=== PATIENT | female | born 1960 | race Two or more races ===

== ENCOUNTER 2020-02-28 06:56 | Outpatient (REF) | payer BC, SELFPAY | END 2020-02-28 06:57 | disposition home or self-care (01) | LOC: HO.LAB 06:56 | PROVIDERS: Visit Provider Internal Medicine | DX: Z20.828 Contact with and (suspected) exposure to other viral communicable diseases (principal) | CPT/HCPCS: C9803; U0003 ==

== ENCOUNTER 2020-03-09 07:07 | Outpatient (REF) | payer BC, SELFPAY | END 2020-03-09 07:08 | disposition home or self-care (01) | LOC: HO.LAB 07:07 | PROVIDERS: Visit Provider Internal Medicine | DX: Z20.828 Contact with and (suspected) exposure to other viral communicable diseases (principal) | CPT/HCPCS: C9803; U0003 ==

== ENCOUNTER → 2022-04-07 15:16 | Outpatient (BNVA) | payer BC, SELFPAY | PROVIDERS: PCP Internal Medicine; Visit Provider Surgery | DX: Z13.89 Encounter for screening for other disorder (principal) ==

== ENCOUNTER 2022-05-11 05:58 | Day surgery (SDC) | payer BC, SELFPAY ==
[2022-05-05 10:40] VITALS: BMI 33.5
[2022-05-11] VITALS (7 sets, daily range): BP systolic 105–115; BP diastolic 61–70; PULSE 74–82; RESP 18–20; TEMP 36.4–36.9; O2SAT 97–99
[2022-05-11] MEDS: Lactated Ringers 1,000 ML 100 ML IVCONT (06:36)
--- NOTE | 2022-05-11 07:21 | P.CONAN_ITS ---
[facility] Active Problems Active Problems: All Active Problems (Updated 05/05/22 @ 10:40 by Brenda Kendall RN) Ventral hernia (Acute) Past Medical History Medical History DVT (deep venous thrombosis) Hiatal hernia History of postoperative nausea and vomiting Renal calculi Ventral hernia Family History Family History Mother Breast cancer Maternal Grandmother Stomach cancer Father Chronic emphysema syndrome Hypertension Surgical History Surgical History Bunion delivery delivered H/O colonoscopy History of bunionectomy Hx of lithotripsy Hx of varicose vein ligation History of Problems with Anesthesia: Yes (PONV) Social History Social History Household Members: Spouse and Children Housing: House Do you presently have visiting nurse or other home services: No Alcohol intake: current Alcohol intake frequency: holidays/special occasions only Patient Tobacco Use Status: Former Tobacco user Quit Date: age 30 Tobacco use type: Cigarette Years Smoked: 12 Use of substances other than those prescribed or required for medical reasons: No Have you been hit, kicked, punched, or otherwise hurt by someone within the past year? If so, by whom?: No Are you DNR?: No Advance Directives: No ([facility] has official HCP form) Advance Directives Information Provided: Yes (as above noted-will bring copy DOS for [facility] chart) Advance Directives on File: No Recently lost weight without trying: No Eating poorly because of decreased appetite: No Nutrition Risks: No Nutritional Risk Poor oral hygiene: No Current occupational status: employed Current occupation: [employer] Meds Allergies Allergy/AdvReac Type Severity Reaction Status Date / Time No Known Allergies Allergy Verified 04/07/22 15:23 Active Medications: Current Medications Lactated Ringer's (Lr) 1,000 mls @ 100 mls/hr IVCONT .Q10H NAUN Last Admin: 05/11/22 06:36 Dose: 100 mls/hr Lactated Ringer's (Lr) 1,000 mls @ 50 mls/hr IVCONT .Q20H [facility] Home Medications Medication Instructions Recorded Confirmed Last Taken Type No Known Home Meds 05/05/22 05/05/22 Unknown History Exam Exam Date and Time: May 11, 2022 0721 Height,Weight and Vital Signs: Height 5 ft 2 in Weight 83.007 kg Airway Mallampati Class: II TM Dist: >3cm Neck ROM: Full Loose/Missing/Broken Teeth: No Heart: RRR Lungs: CTA Assessment and Plan Assessment Anesthesia Assessment: Anesthesia Plan Discussed and Chart Reviewed Final Anesthetic Review History of Problems with Anesthesia: Yes (PONV) NPO: Yes ASA Class: II Final Preanesthetic Review: Meds/Allgs Chart Reviewed, Consent Obtained/Reviewed and Anes Risks/Benef Reviewed Patient Risk: Low Procedure Risk: Low Anesthetic Plan Anesthetic Plan: GA Disposition: Standard PACU
--- NOTE | 2022-05-11 07:34 | MHC.SHP ---
Pre-Procedural Eval Section A Date of Service: 05/11/22 The patient is an INPATIENT: No Changes since office visit: Yes Patient answered all questions; No Cold of Flu in the past 2 weeks, No New Medical Problems and No Changes in Medication The History & Physical has been completed within 30 days and I have reviewed it.: No Section B Chief Complaint: Ventral hernia without obstruction or gangrene Details of Present Illness: No change in symptoms since last visit Relevant Family History (Specify if Yes): No Relevant Social History: None Present Medications: see Short Stay Collaborative assessment Medical History: No relevant PMH History of Previous Operations: No relevant previous surgery Allergies: Allergies Allergy/AdvReac Type Severity Reaction Status Date / Time No Known Allergies Allergy Verified 04/07/22 15:23 Review of Systems Sugical H&P ROS: Negative: Constitution, Cardiovascular, Respiratory, Neurological, Psychiatric, Hem-Onc, Allergic/Immunologic, Gastrointestinal, Genitourinary, Musculoskeletal, Integumentary, Endocrine and Eyes/Ears/Nose/Throat Exam Surgical H&P Exam: Normal: HEENT, Normal: Heart, Normal: Lungs, Normal: Extremities, Normal: Skin and Normal: Neurological and Significant Findings: Abdomen (ventral hernia) Plan Diagnosis/Plan: Unchanged I have reviewed the history and physical and performed a pertinent physical examination on my patient. No changes have occurred unless specified. Time Spent With Patient Time: Total time managing care of this patient today ____ minutes.
--- NOTE | 2022-05-11 08:19 | W.PM.OPN ---
Operative Note Operative Note Date of Service: 05/11/22 Narrative: Preoperative diagnosis: ventral hernia Postoperative diagnosis: same Procedure: repair of ventral hernia with mesh Surgeon: Gunnar Maza MD Case Sealer: Vanita Lopes PA-C Anesthesia: general LMA Indications for procedure: 61-year-old female presenting with a palpable lump above the umbilicus found to have a ventral hernia . Operative findings: 2.5 cm ventral hernia, reducible Specimen: none Estimated blood loss: less than 2 mL Complications: none Procedure details: patient was brought to the OR placed in a supine position. After administering general anesthesia the patient's abdomen was prepped with ChloraPrep and draped in a sterile fashion. A surgical time-out was called the consent confirmed. Patient received preoperative antibiotics and Venodyne boots were in place. Local anesthesia was infiltrated in the midline above the umbilicus. Incision was then made with a scalpel carried out through the subcutaneous tissue. The hernia sac was identified dissected down to the fascial defect. Fascial defect was widened slightly to allow reduction of the hernia sac. A preperitoneal space was then created with blunt dissection. A 6.4 cm Ventralex mesh was then obtained. This was then deployed within the preperitoneal space. The secured 4 quadrants using a 1 Tycron suture. Fascia was then closed over the mesh using [id number] 1 Tycron sutures. Wounds were then irrigated with saline solution suctioned dry. Zenrelef 4 mL was then instilled over the fascia. Subcutaneous tissue and dermis were then reapproximated using interrupted 3-0 Polysorb sutures. Skin was closed using a running subcuticular 4-0 Polysorb suture. Steri-Strips, 2 x 2 gauze and Tegaderm were then applied. The patient tolerated the procedure well. Sponge, instrument, and needle counts reported as correct. The patient was transferred to PACU in stable condition.
[2022-05-11] MEDS: Acetaminophen 325 MG TABLET 650 MG PO (08:48)
[2022-05-11] MEDS: oxyCODONE HCl Immed Release 5 MG TABLET PO (08:49)
== END 2022-05-11 10:08 | disposition home or self-care (01) ==
PROVIDERS: PCP Internal Medicine; Visit Provider Surgery
PROC: (CPT 49591; principal; 2022-05-11 07:30)
DX: K43.9 Ventral hernia without obstruction or gangrene (principal); Z87.442 Personal history of urinary calculi; Z87.891 Personal history of nicotine dependence
CPT/HCPCS: 49591; C1781; C9088; J0690; J1100; J1885; J2250; J2405; J3010

== ENCOUNTER → 2022-05-20 08:39 | Outpatient (BNVA) | payer BC, SELFPAY | PROVIDERS: PCP Internal Medicine; Visit Provider Surgery | DX: Z13.89 Encounter for screening for other disorder (principal) ==

== ENCOUNTER → 2022-06-17 09:09 | Outpatient (BNVA) | payer BC, SELFPAY | PROVIDERS: PCP Internal Medicine; Visit Provider Surgery | DX: Z13.89 Encounter for screening for other disorder (principal) ==

== ENCOUNTER → 2022-09-07 15:11 | Outpatient (BNVA) | payer BC, SELFPAY | PROVIDERS: PCP Internal Medicine; Visit Provider Internal Medicine ==

== ENCOUNTER 2023-05-19 10:21 | Inpatient (IN) | payer BC, SELFPAY ==
--- NOTE | ~2023-05-19 | CT_ITS ---
EXAMINATION: CT CHEST WITHOUT CONTRAST CLINICAL INFORMATION: Cough, pneumonia COMPARISON: None available. TECHNIQUE: Multidetector volumetric CT imaging of the chest was done. Axial MIP volume rendering provided. Sagittal and coronal reformatted images were obtained. This CT examination was performed using dose optimization techniques as appropriate, variously including the following: *Automated exposure control *Adjustment of mA and/or kV according to patient size (this includes techniques or standardized protocols for targeted exams where dose is matched to indication/reason for exam; i.e. extremities or head) *Use of iterative reconstruction technique DLP: 255 mGy-cm FINDINGS: LUNGS: Extensive left lower lobe airspace disease with air bronchograms is seen in the left lower lobe, relatively sparing the superior segment. Smaller wedge-shaped airspace disease with air bronchograms is also present along the posterior border of left lingular lobe superior and inferior segments. More scattered peribronchial infiltrates are seen in the right lower lobe lateral and posterior basal segments. PLEURA: No pleural effusion or pneumothorax is seen. PERICARDIUM: No pericardial effusion is seen. MEDIASTINUM AND BRIAN: Inadequate evaluation of the mediastinal and hilar lymph nodes due to absence of IV contrast filling the surrounding blood vessels. TRACHEOBRONCHIAL TREE: Trachea and bilateral mainstem bronchi are patent. THORACIC AORTA: The thoracic aorta is normal in size and smooth in outline. CORONARY ARTERY CALCIFICATIONS: None PULMONARY ARTERIES: The main pulmonary arteries appear to be normal in size. CHEST WALL AND LOWER NECK: The subcutaneous and muscular chest wall are intact with no focal lesion. No abnormal mass lesion could be seen in the visualized lower neck. BONES: No fracture or dislocation. No focal bone lesion diagnostic of metastatic disease could be seen in the thorax. VISUALIZED UPPER ABDOMEN: Bilateral adrenal glands are not enlarged. Medium-sized hiatus hernia is present in the retrocardiac region. CT/CT chest wo IV con IMPRESSION: 1. Extensive left lower lobe airspace disease with air bronchograms. Smaller wedge-shaped airspace disease is seen in the left lingular lobe and right lower lobe. Findings are consistent with multifocal pneumonia. 2. Medium-sized hiatus hernia is present in the retrocardiac region. Fleischner guidelines were followed.
--- NOTE | ~2023-05-19 | XR_ITS ---
EXAMINATION: XR CHEST CLINICAL INFORMATION: Dyspnea COMPARISON: Chest x-ray on 02/21/2008 TECHNIQUE: 2 views of the chest were obtained. FINDINGS: vascularity. LUNGS: Large left retrocardiac hiatus hernia is present, causing compression atelectasis in medial left lower lobe. Asymmetric patchy alveolar infiltrates are seen in lateral left lung base, projected over the posterior basal segment of left lower lobe. No pneumothorax is seen. BONES: Bony skeleton is intact. XR/XR chest 2V IMPRESSION: 1. Interval development of left lateral lower lobe alveolar infiltrates, compatible with pneumonia. 2. Interval development of large left retrocardiac hiatus hernia, causing compression atelectasis in medial left lower lobe.
[2023-05-19 10:24] VITALS: BP 141/96; PULSE 112; RESP 20; TEMP 36.8; O2SAT 93; BMI 31.6
[2023-05-19 11:01] LABS: MANUAL DIFF FLAG NO
[2023-05-19 11:03] LABS: Basophils Absolute Auto 0.1 X10*3/uL (0.0-0.2); Basophils Percent Auto 0.4 % (0-2); Eosinophils Absolute Auto 0.3 X10*3/uL (0.0-0.4); Eosinophils Percent Auto 1.5 % (0-4); Hematocrit 45.1 % (37.0-47.0); Imm Gran Abs Auto 0.14 X10*3/uL (0.00-0.03); Imm Gran Pct Auto 0.8 % (0.0-0.4); Lymphocytes Absolute Auto 1.2 X10*3/uL (1.2-4.9); Mean Corpuscular HGB Conc 33.3 g/dl (31.0-35.0); Mean Corpuscular Hemoglobin 26.4 pg (27.0-33.0); Mean Corpuscular Volume 79.3 fL (80.0-98.0); Mean Platelet Volume 8.8 fL (9.4-12.3); Neutrophils Absolute Auto 13.9 x10*3/uL (2.0-8.3); Neutrophils Percent Auto 84.3 % (45-73); Platelet Count 326 X10*3/uL (160-400); Red Blood Count 5.69 X10*6/uL (4.20-5.50); Red Cell Distribution Width 13.4 % (11.0-16.0); White Blood Count 16.5 X10*3/uL (4.8-10.8)
[2023-05-19 11:16] LABS: Anion Gap 15 (12-20); Blood Urea Nitrogen 12 mg/dL (9-16); Calcium 8.9 mg/dL (8.4-10.2); Carbon Dioxide 25 mmol/L (22-29); Chloride 104 mmol/L (96-108); Creatinine Clr Calc Pharmacy 85.7; Estimated Glomerular Filt Rate > 60; Glucose Random 105 mg/dL (60-115); IDNOW Serial# 08D9AD1C; Potassium 3.7 mmol/L (3.3-5.1); Sodium 140 mmol/L (135-145); Strep A Nucleic Acid Negative (Negative)
[2023-05-19 11:17] LABS: IDNOW Serial# 152EDE1D; Influenza A Negative (Negative); Influenza B2 Negative (Negative)
[2023-05-19 13:21] VITALS: PULSE 118; RESP 20; O2SAT 88
--- NOTE | 2023-05-19 13:25 | ED_ITS ---
HPI - SOB/Dyspnea General Chief Complaint: Dyspnea Stated Complaint: trouble breathing, Time Seen by Provider: 05/19/23 13:08 Source: patient and family Mode of arrival: ambulatory Limitations: no limitations History of Present Illness HPI Narrative: Comes in the emergency room accompanied by her . Patient states that for about a week she is having shortness of breath, coughing. Patient states that about a week ago she was diagnosed with strep, given penicillin prednisone. Patient had to stop the prednisone course, as it made her feel sick, tachycardic, head pressure. Patient finish entire course of penicillin. Patient states that at night when she walks, the shortness of breath gets worse. Related Data Home Medications Medication Instructions Recorded Confirmed loratadine 10 mg tablet (Allergy 10 mg PO DAILY 09/07/22 Relief (loratadine)) Previous Rx's Medication Instructions Recorded peg 3350-electrolytes 236 240 ml PO Q10M colonoscopy #4,000 09/07/22 gram-22.74 gram-6.74 gram-5.86 mL gram solution (Golytely) Allergies Allergy/AdvReac Type Severity Reaction Status Date / Time No Known Allergies Allergy Verified 09/07/22 15:24 Review of Systems 2 Review of Systems: Constitutional : No Weight loss, No Fever, No Chills, No Night Sweats, No Fatigue, No Malaise ENT/Mouth : No Hearing loss, No Ear Pain, No Nasal Congestion, No Sinus Pain, No Hoarseness, No sore throat, No Rhinorrhea, No Swallowing Difficulty Eyes: No Eye Pain, No Swelling, No Redness, No Foreign Body, No Discharge, No Vision Changes Cardiovascular : No Chest Pain, No SOB, No Dyspnea on Exertion, No Orthopnea, No Edema, No Palpitations Respiratory : Complaining of productive sputum No Wheezing, No Smoke Exposure, complaining of dyspnea with exertion Gastrointestinal : No Nausea, No Vomiting, No Diarrhea, No Constipation, No abdominal Pain, No Hematochezia, No Melena Genitourinary : no irregular bleeding, No Dysuria, No Urinary Frequency, No Hematuria, No Urinary Incontinence, No Urgency, No Flank Pain, No Urinary Flow Changes, No Hesitancy Musculoskeletal : No joint pain, No Myalgias, No Joint Swelling Skin : No Skin Lesions, No rash Neuro : No Weakness, No Numbness, No Paresthesias, No Loss of Consciousness, No Dizziness, No Headache Psych : No Anxiety/Panic, No Depression, No SI/HI/AH/VH, No Social Issues, Heme/Lymph: No Bruising, No Bleeding,No Lymphadenopathy Endocrine : No Polyuria, No Polydipsia, No Temperature Intolerance [facility] Past Medical History Medical History History of postoperative nausea and vomiting DVT (deep venous thrombosis) Hiatal hernia Renal calculi Ventral hernia Surgical History S/P repair of ventral hernia (05/31/22) History of ventral hernia repair History of bunionectomy H/O colonoscopy Hx of varicose vein ligation Hx of lithotripsy Bunion delivery delivered Family History Family History Mother Breast cancer Maternal Grandmother Stomach cancer Father Chronic emphysema syndrome Hypertension Social History Social History Household Members: Spouse and Children Housing: House Do you presently have visiting nurse or other home services: No Alcohol intake: current Alcohol intake frequency: holidays/special occasions only Patient Tobacco Use Status: Former Tobacco user Quit Date: age 30 Tobacco use type: Cigarette Years Smoked: 12 Advance Directives: No Advance Directives Information Provided: No Current occupational status: employed Current occupation: Hairdresser Physical Exam 2 Vital Signs: Vital Signs: Last Vital Signs Temp 99.6 F 05/19/23 14:00 Pulse 106 H 05/19/23 14:00 Resp 13 05/19/23 14:00 BP 120/81 05/19/23 14:00 Pulse Ox 94 05/19/23 14:00 O2 Del Method Nasal Cannula 05/19/23 14:00 BMI result Body Mass Index 31.6 Const: Other: Appearance: Alert. Oriented X3. No acute distress. Eyes: Pupils equal, round and reactive to light. ENT: Pharynx normal. Neck: Normal inspection. Neck supple. No lymph nodes noted. No crepitus CVS: Normal heart rate and rhythm. Pulses normal. Normal S1 and S2 Respiratory: No respiratory distress. Bilateral rales, no wheezing, no crackles, actively coughing. Oxygen saturation drops to 88% while she is sitting. Abdomen: Soft and nontender. No rigidity. No distention. Skin: Skin warm and dry. Normal skin color. Normal skin turgor. Extremities: No lower extremity edema. No Lacerations. No Rash Neuro: Oriented X 3. No motor deficit. No sensory deficit. Moving all extremities. No slurred speech. CN 2 through 12 grossly intact Psych: calm, cooperative, normal affect Medications Administered Generic Name Dose Route Start Last Admin Trade Name Freq PRN Reason Stop Dose Admin Azithromycin 500 mg/ Sodium 250 mls @ 125 mls/hr 05/19/23 13:22 05/19/23 14:07 Chloride IV 05/19/23 15:21 125 mls/hr ONCE ONE Administration Discontinued Medications Generic Name Dose Route Start Last Admin Trade Name Freq PRN Reason Stop Dose Admin Acetaminophen 975 mg 05/19/23 14:09 05/19/23 14:22 Acetaminophen 325 Mg Tablet PO 05/19/23 14:10 975 mg ONCE ONE Administration Guaifenesin/Codeine Phosphate 5 ml 05/19/23 13:30 05/19/23 13:53 Guaifen/Codeine Sf 200/20/10ml 10 Ml Liquid PO 05/19/23 13:31 5 ml ONCE ONE Administration Sodium Chloride 1,000 mls @ 999 mls/hr 05/19/23 13:22 05/19/23 13:44 Ns IVCONT 05/19/23 14:22 999 mls/hr .Q1H1M ONE Administration Ceftriaxone Sodium 1 gm/ 50 mls @ 100 mls/hr 05/19/23 13:22 05/19/23 14:28 Sodium Chloride IV 05/19/23 13:51 Infused ONCE ONE Infusion Medical Decision Making Medical Decision Making [facility] Narrative: My interpretation of labs: White blood cell count 6.5, normal hemoglobin and hematocrit, no significant electrolyte abnormality. Serology negative for strep and influenza, COVID positive. -my interpretation of chest x-ray, infiltrate in left lower lobe -patient's blood pressure stable, no fever, lactic acid pending. At this time, sepsis is not suspected. -patient took penicillin for a week, strep throat symptoms improved, respiratory symptoms worsened -oxygen saturation 88% on room air Differential Diagnosis Differential Diagnoses: The differential diagnosis associated with the presentation includes (COVID, influenza, strep, viral syndrome) Admission/Observation Consideration of admission/observation: Escalation of care including admission/observation considered Consult Healthcare Provider Management of the patient was discussed with: Hospitalist (Patient accepted by the medicine team, Dr. Casillas) Lab Data MDM Lab Attestation statement: I reviewed the patient's lab results. 05/19/23 10:57 05/19/23 10:57 Labs: Lab Results 05/19/23 05/19/23 05/19/23 Range/Units 10:57 10:58 13:37 WBC 16.5 H (4.8-10.8) X10*3/uL RBC 5.69 H (4.20-5.50) X10*6/uL Hgb 15.0 (12.0-16.0) g/dl Hct 45.1 (37.0-47.0) % MCV 79.3 L (80.0-98.0) fL MCH 26.4 L (27.0-33.0) pg MCHC 33.3 (31.0-35.0) g/dl RDW 13.4 (11.0-16.0) % Plt Count 326 (160-400) X10*3/uL MPV 8.8 L (9.4-12.3) fL Immature Gran % (Auto) 0.8 H (0.0-0.4) % Neut % (Auto) 84.3 H (45-73) % Lymph % (Auto) 7.0 L (20-40) % [place] % (Auto) 6.0 (2-11) % Eos % (Auto) 1.5 (0-4) % Baso % (Auto) 0.4 (0-2) % Lymph # (Auto) 1.2 (1.2-4.9) X10*3/uL [place] # (Auto) 1.0 (0.1-1.2) X10*3/uL Eos # (Auto) 0.3 (0.0-0.4) X10*3/uL Baso # (Auto) 0.1 (0.0-0.2) X10*3/uL Abs Immat Gran (auto) 0.14 H (0.00-0.03) X10*3/uL Absolute Neuts (auto) 13.9 H (2.0-8.3) x10*3/uL Absolute Nucleated RBC 0.000 (0.0-0.012) X10*3/uL Nucleated RBC % (auto) 0.0 (0.0-0.2) /100WBC Sodium 140 (135-145) mmol/L Potassium 3.7 (3.3-5.1) mmol/L Chloride 104 (96-108) mmol/L Carbon Dioxide 25 (22-29) mmol/L Anion Gap 15 (12-20) BUN 12 (9-16) mg/dL Creatinine 0.66 (0.5-1.4) mg/dL Estim Creat Clear Calc 85.7 Estimated GFR > 60 Random Glucose 105 (60-115) mg/dL Lactic Acid 1.5 (0.5-2.0) mmol/L Calcium 8.9 (8.4-10.2) mg/dL Urine Color Urine Appearance Urine pH (5.0-9.0) Ur Specific [place] (1.005-1.025) Urine Protein (Neg-Trace) mg/dL Urine Glucose (UA) (Negative) mg/dL Urine Ketones (Negative) mg/dL Urine Blood (Negative) Urine Nitrite (Negative) Ur Leukocyte Esterase (Negative) Urine RBC (0-2) /HPF Urine WBC (0-5) /HPF Ur Squamous Epith Cells (0-2) /HPF Urine Bacteria (None Seen) Hyaline Casts (0-2) /LPF COVID-19 (HAY) (Negative) COVID-19 Clin Com Influenza Type A (RITIKA) Negative (Negative) Influenza Type B (RITIKA) Negative (Negative) Influenza A & B Note See Note S. pyogenes GrpA RITIKA Negative (Negative) 05/19/23 Range/Units 13:40 WBC (4.8-10.8) X10*3/uL RBC (4.20-5.50) X10*6/uL Hgb (12.0-16.0) g/dl Hct (37.0-47.0) % MCV (80.0-98.0) fL MCH (27.0-33.0) pg MCHC (31.0-35.0) g/dl RDW (11.0-16.0) % Plt Count (160-400) X10*3/uL MPV (9.4-12.3) fL Immature Gran % (Auto) (0.0-0.4) % Neut % (Auto) (45-73) % Lymph % (Auto) (20-40) % [place] % (Auto) (2-11) % Eos % (Auto) (0-4) % Baso % (Auto) (0-2) % Lymph # (Auto) (1.2-4.9) X10*3/uL [place] # (Auto) (0.1-1.2) X10*3/uL Eos # (Auto) (0.0-0.4) X10*3/uL Baso # (Auto) (0.0-0.2) X10*3/uL Abs Immat Gran (auto) (0.00-0.03) X10*3/uL Absolute Neuts (auto) (2.0-8.3) x10*3/uL Absolute Nucleated RBC (0.0-0.012) X10*3/uL Nucleated RBC % (auto) (0.0-0.2) /100WBC Sodium (135-145) mmol/L Potassium (3.3-5.1) mmol/L Chloride (96-108) mmol/L Carbon Dioxide (22-29) mmol/L Anion Gap (12-20) BUN (9-16) mg/dL Creatinine (0.5-1.4) mg/dL Estim Creat Clear Calc Estimated GFR Random Glucose (60-115) mg/dL Lactic Acid (0.5-2.0) mmol/L Calcium (8.4-10.2) mg/dL Urine Color Yellow Urine Appearance Clear Urine pH 6.0 (5.0-9.0) Ur Specific [place] 1.010 (1.005-1.025) Urine Protein Negative (Neg-Trace) mg/dL Urine Glucose (UA) Negative (Negative) mg/dL Urine Ketones 15 (Negative) mg/dL Urine Blood Negative (Negative) Urine Nitrite Negative (Negative) Ur Leukocyte Esterase Moderate (2+) H (Negative) Urine RBC 0-2 (0-2) /HPF Urine WBC 0-5 (0-5) /HPF Ur Squamous Epith Cells 0-2 (0-2) /HPF Urine Bacteria None Seen (None Seen) Hyaline Casts 0-2 (0-2) /LPF COVID-19 (HAY) Negative (Negative) COVID-19 Clin Com See Note Influenza Type A (RITIKA) (Negative) Influenza Type B (RITIKA) (Negative) Influenza A & B Note S. pyogenes GrpA RITIKA (Negative) Independent Interpretation I performed an independent interpretation of an: Plain X-Ray Radiology Impression Discussion of test interpretation with radiology: I have reviewed the radiologist's reading. Radiologist Impression: LUNGS: Large left retrocardiac hiatus hernia is present, causing compression atelectasis in medial left lower lobe. Asymmetric patchy alveolar infiltrates are seen in lateral left lung base, projected over the posterior basal segment of left lower lobe. No pneumothorax is seen. BONES: Bony skeleton is intact. XR/XR chest 2V IMPRESSION: 1. Interval development of left lateral lower lobe alveolar infiltrates, compatible with pneumonia. 2. Interval development of large left retrocardiac hiatus hernia, causing compression atelectasis in medial left lower lobe. Independent Historian Clinical information obtained from an independent historian. History obtained from or confirmed by: Spouse Critical Care Time Critical Care Time Critical Care Time: Yes Total Critical Care Time: 60 Attestation: I have personally provided critical care time. Time includes review of lab data, radiology results, discussion with consultants, and monitoring for potential decompensation. Intervention performed as documented. Discharge Plan Discharge Clinical Impression: Pneumonia Patient Disposition: Admitted As Inpatient
[2023-05-19] MEDS: 0.9 % Sodium Chloride 1,000 ML 999 ML IVCONT (13:44)
[2023-05-19 13:48] LABS: Appearance Urine Clear; Color Urine Yellow; Glucose Urine UA Negative (Negative); Leukocyte Esterase Urine Moderate (2+) (Negative); Nitrite Urine Negative (Negative); UMIC TRIGGER UACC YES; Urine Blood Negative (Negative); Urine Ketones 15 mg/dL (Negative); Urine Protein Negative (Neg-Trace)
[2023-05-19] MEDS: guaiFEN/Codeine SF 200/20/10ML 10 ML LIQUID 5 ML PO ×2 (13:53→22:38)
[2023-05-19] MEDS: cefTRIAXone sodium 1 GM in 0.9 % Sodium Chloride 50 ML IV (13:54)
[2023-05-19 13:59] LABS: Bacteria Urine None Seen (None Seen); Hyaline Casts Urine 0-2 /LPF (0-2); RBC Urine 0-2 /HPF (0-2); Squamous Epithelial Cell Urine 0-2 /HPF (0-2); UACC Culture Trigger YES; WBC Urine 0-5 /HPF (0-5)
[2023-05-19 14:00] VITALS: BP 120/81; PULSE 106; RESP 13; TEMP 37.6; O2SAT 94
[2023-05-19 14:07] LABS: COVID-19 Test Negative (Negative); IDNOW Serial# 152EDE1D
[2023-05-19 14:07] LABS: Lactic Acid 1.5 mmol/L (0.5-2.0)
[2023-05-19] MEDS: Azithromycin 500 MG in 0.9 % Sodium Chloride 250 ML 125 MG IV (14:07)
[2023-05-19] MEDS: Acetaminophen 325 MG TABLET 975 MG PO (14:22)
--- NOTE | 2023-05-19 14:55 | PM.IMHP ---
History of Present Illness Date of Service: 05/19/23 Chief Complaint: sob 62F PMH provoked DVT (2007, not on AC), presented with sob. Patient has been feeling ill for about 3 weeks, shortness of breath, nonproductive cough. About 1 week prior to presentation she went to urgent care and tested positive for strep. Chest x-ray showed 1.7 cm cavitary lesion left mid lung new compared to March 2022. she was given penicillin and prednisone. Prednisone discontinued after having palpitations. She continued to feel poorly and short of breath so came to ED. in ED noted to be tachycardic, leukocytosis, chest x-ray with left lower lobe pneumonia. Review of Systems Review of Systems: Yes all other systems are reviewed and are negative [facility] Medical History History of postoperative nausea and vomiting DVT (deep venous thrombosis) Hiatal hernia Renal calculi Ventral hernia Family History Mother Breast cancer Maternal Grandmother Stomach cancer Father Chronic emphysema syndrome Hypertension Surgical History S/P repair of ventral hernia (05/31/22) History of ventral hernia repair History of bunionectomy H/O colonoscopy Hx of varicose vein ligation Hx of lithotripsy Bunion delivery delivered Social History Household Members: Spouse and Children Housing: House Do you presently have visiting nurse or other home services: No Alcohol intake: current Alcohol intake frequency: holidays/special occasions only Patient Tobacco Use Status: Former Tobacco user Quit Date: age 30 Tobacco use type: Cigarette Years Smoked: 12 Advance Directives: No Advance Directives Information Provided: No Current occupational status: employed Current occupation: [employer] Allergies Allergy/AdvReac Type Severity Reaction Status Date / Time No Known Allergies Allergy Verified 09/07/22 15:24 Active Medications: Current Medications Azithromycin 500 mg/ Sodium (Chloride) 250 mls @ 125 mls/hr IV ONCE ONE Stop: 05/19/23 15:21 Last Admin: 05/19/23 14:07 Dose: 125 mls/hr Home Medications Medication Instructions Recorded Confirmed Last Taken Type loratadine 10 mg tablet (Allergy 10 mg PO DAILY 09/07/22 Unknown History Relief (loratadine)) albuterol sulfate 90 mcg/actuation 2 puff inhalation Q6H PRN wheezing 05/19/23 Unknown History aerosol inhaler Physical Exam Vital Signs and Narrative: Vital Signs: Last Vital Signs Temp 99.6 F 05/19/23 14:00 Pulse 106 H 05/19/23 14:00 Resp 13 05/19/23 14:00 BP 120/81 05/19/23 14:00 Pulse Ox 94 05/19/23 14:00 O2 Del Method Nasal Cannula 05/19/23 14:00 BMI result Body Mass Index 31.6 General: AO X 3, no acute distress Resp: Crackles left base, no accessory muscles used CVS: S1,S2,RRR GI: soft, non tender, non distended Neuro: motor grossly intact, alert Psych: appropriate affect, appropriate insight Results Labs 05/19/23 10:57 05/19/23 10:57 Labs: Laboratory Results - last 24 hr 05/19/23 05/19/23 05/19/23 10:57 10:58 13:37 MCV 79.3 L MCH 26.4 L MCHC 33.3 RDW 13.4 Plt Count 326 MPV 8.8 L Immature Gran % (Auto) 0.8 H Neut % (Auto) 84.3 H Lymph % (Auto) 7.0 L [place] % (Auto) 6.0 Eos % (Auto) 1.5 Baso % (Auto) 0.4 Lymph # (Auto) 1.2 [place] # (Auto) 1.0 Eos # (Auto) 0.3 Baso # (Auto) 0.1 Abs Immat Gran (auto) 0.14 H Absolute Neuts (auto) 13.9 H Absolute Nucleated RBC 0.000 Nucleated RBC % (auto) 0.0 Anion Gap 15 Estim Creat Clear Calc 85.7 Estimated GFR > 60 Random Glucose 105 Lactic Acid 1.5 Calcium 8.9 Urine Color Urine Appearance Urine pH Ur Specific [place] Urine Protein Urine Glucose (UA) Urine Ketones Urine Blood Urine Nitrite Ur Leukocyte Esterase Urine RBC Urine WBC Ur Squamous Epith Cells Urine Bacteria Hyaline Casts COVID-19 (HAY) COVID-19 Clin Com Influenza Type A (RITIKA) Negative Influenza Type B (RITIKA) Negative Influenza A & B Note See Note S. pyogenes GrpA RITIKA Negative 05/19/23 13:40 MCV MCH MCHC RDW Plt Count MPV Immature Gran % (Auto) Neut % (Auto) Lymph % (Auto) [place] % (Auto) Eos % (Auto) Baso % (Auto) Lymph # (Auto) [place] # (Auto) Eos # (Auto) Baso # (Auto) Abs Immat Gran (auto) Absolute Neuts (auto) Absolute Nucleated RBC Nucleated RBC % (auto) Anion Gap Estim Creat Clear Calc Estimated GFR Random Glucose Lactic Acid Calcium Urine Color Yellow Urine Appearance Clear Urine pH 6.0 Ur Specific [place] 1.010 Urine Protein Negative Urine Glucose (UA) Negative Urine Ketones 15 Urine Blood Negative Urine Nitrite Negative Ur Leukocyte Esterase Moderate (2+) H Urine RBC 0-2 Urine WBC 0-5 Ur Squamous Epith Cells 0-2 Urine Bacteria None Seen Hyaline Casts 0-2 COVID-19 (HAY) Negative COVID-19 Clin Com See Note Influenza Type A (RITIKA) Influenza Type B (RITIKA) Influenza A & B Note S. pyogenes GrpA RITIKA Imaging Radiologist's Impressions: Impressions Chest X-Ray 05/19/23 10:40 IMPRESSION: 1. Interval development of left lateral lower lobe alveolar infiltrates, compatible with pneumonia. 2. Interval development of large left retrocardiac hiatus hernia, causing compression atelectasis in medial left lower lobe. Assessment and Plan (1) Pneumonia: Status: Acute Plan 62F PMH provoked DVT (2007, not on AC), presented with sob sepsis due to left sided pneumonia check ct rocephin, azithro urine strep, legionella, resp viral panel dvt prophylaxis - lovenox full code patient septic with pneumonia, likely to need 2 midnights inpatient for close monitoring and iv abx, given severity of symptoms at risk for further decompensation. Quality Stroke Does the patient have a stroke diagnosis?: No VTE Prior VTE?: Yes VTE Risk Level:: Medical - moderate - high VTE Device Contraindication: Treatment Not Indicated VTE Drug Contraindication: N/A - Med Ordered
[2023-05-19 15:21] VITALS: BP 100/65; PULSE 103; RESP 16; TEMP 37.4; O2SAT 92
--- NOTE | 2023-05-19 15:30 | MHC.EDTECH ---
This pct assumed care of patient at 1500 ,vitals taken and urine sample collected ,resp panel collected and se3nt to lab ,Patient belonging list done .
--- NOTE | 2023-05-19 16:45 | PHA.MEDREC ---
Pharmacy Consult ? Medication Reconciliation Pharmacy has completed the medication reconciliation with pt, pt confirmed albuterol use this morning, stated she takes loratidine seasonally, stated she start her penicillin treatment and was supposed to finish monday but is getting a different antibiotic here, patient added she takes a vitamin B complex and vitamin D at home and has used ibuprofen and tylenol as needed.
[2023-05-19 19:27] VITALS: BP 101/54; PULSE 102; RESP 18; TEMP 36.6; O2SAT 92
[2023-05-19 22:18] VITALS: BMI 32.5
[2023-05-19] MEDS: 0.9 % Sodium Chloride Flush 3 ML SYRINGE IVFLUSH (22:21)
[2023-05-19 22:41] VITALS: BP 120/72; PULSE 89; RESP 16; TEMP 37; O2SAT 92
[2023-05-20 02:44] VITALS: BP 114/63; PULSE 84; RESP 18; TEMP 36.2; O2SAT 93
[2023-05-20 06:14] LABS: Hematocrit 43.5 % (37.0-47.0); Hemoglobin 14.2 g/dl (12.0-16.0); Mean Corpuscular HGB Conc 32.6 g/dl (31.0-35.0); Mean Corpuscular Hemoglobin 26.3 pg (27.0-33.0); Mean Corpuscular Volume 80.7 fL (80.0-98.0); Mean Platelet Volume 8.9 fL (9.4-12.3); Platelet Count 295 X10*3/uL (160-400); Red Blood Count 5.39 X10*6/uL (4.20-5.50); Red Cell Distribution Width 13.4 % (11.0-16.0); White Blood Count 9.7 X10*3/uL (4.8-10.8)
[2023-05-20 06:29] LABS: Anion Gap 12 (12-20); Blood Urea Nitrogen 7 mg/dL (9-16); Calcium 8.5 mg/dL (8.4-10.2); Carbon Dioxide 26 mmol/L (22-29); Chloride 106 mmol/L (96-108); Creatinine Clr Calc Pharmacy 97.2; Estimated Glomerular Filt Rate > 60; Glucose Fasting 89 mg/dL (60-99); Potassium 3.9 mmol/L (3.3-5.1); Sodium 140 mmol/L (135-145)
--- NOTE | 2023-05-20 08:54 | P.PNIM_ITS ---
Subjective Subjective Date of Service: 05/20/23 Interval History: improved Physical Exam 2 Vital Signs: Vital Signs: Last Vital Signs Temp 97.1 F 05/20/23 02:44 Pulse 84 05/20/23 02:44 Resp 18 05/20/23 02:44 BP 114/63 05/20/23 02:44 Pulse Ox 93 05/20/23 02:44 O2 Del Method Room Air 05/20/23 02:44 BMI result Body Mass Index 32.5 General: AO X 3, no acute distress Resp: Crackles lll, no accessory muscles used CVS: S1,S2,RRR GI: soft, non tender, non distended Neuro: motor grossly intact, alert Psych: appropriate affect, appropriate insight Objective Data Active Medications Acetaminophen (Acetaminophen 325 Mg Tablet) 650 mg PO Q6H PRN PRN Reason: Pain, Mild (Pain Scale 1-3) Azithromycin (Azithromycin 500 Mg Tablet) 500 mg PO Q24H NAUN Enoxaparin Sodium (Enoxaparin Sodium 40 Mg/0.4 Ml Syringe) 40 mg SUBCUT Q24H NAUN Guaifenesin/Codeine Phosphate (Guaifen/Codeine Sf 200/20/10ml 10 Ml Liquid) 5 ml PO Q6H PRN PRN Reason: Cough Last Admin: 05/19/23 22:38 Dose: 5 ml Documented By: ANGELY Ceftriaxone Sodium 1 gm/ (Sodium Chloride) 50 mls @ 100 mls/hr IV Q24H NAUN Melatonin (Melatonin 3 Mg Tablet) 6 mg PO BEDTIME PRN PRN Reason: Insomnia Sodium Chloride (0.9 % Sodium Chloride Flush 3 Ml Syringe) 3 ml IVFLUSH QSHIFT [facility] Last Admin: 05/19/23 22:21 Dose: 3 ml Documented By: ANGELY Labs 05/20/23 05:39 05/20/23 05:39 Labs: Laboratory Results - last 24 hr 05/19/23 05/19/23 05/19/23 10:57 10:58 13:37 MCV 79.3 L MCH 26.4 L MCHC 33.3 RDW 13.4 Plt Count 326 MPV 8.8 L Immature Gran % (Auto) 0.8 H Neut % (Auto) 84.3 H Lymph % (Auto) 7.0 L [place] % (Auto) 6.0 Eos % (Auto) 1.5 Baso % (Auto) 0.4 Lymph # (Auto) 1.2 Tyler # (Auto) 1.0 Eos # (Auto) 0.3 Baso # (Auto) 0.1 Abs Immat Gran (auto) 0.14 H Absolute Neuts (auto) 13.9 H Absolute Nucleated RBC 0.000 Nucleated RBC % (auto) 0.0 Anion Gap 15 Estim Creat Clear Calc 85.7 Estimated GFR > 60 Random Glucose 105 Fasting Glucose Lactic Acid 1.5 Calcium 8.9 Urine Color Urine Appearance Urine pH Ur Specific [place] Urine Protein Urine Glucose (UA) Urine Ketones Urine Blood Urine Nitrite Ur Leukocyte Esterase Urine RBC Urine WBC Ur Squamous Epith Cells Urine Bacteria Hyaline Casts COVID-19 (HAY) COVID-19 Clin Com Influenza Type A (RITIKA) Negative Influenza Type B (RITIKA) Negative Influenza A & B Note See Note S. pyogenes GrpA RITIKA Negative 05/19/23 05/20/23 13:40 05:39 MCV 80.7 MCH 26.3 L MCHC 32.6 RDW 13.4 Plt Count 295 MPV 8.9 L Immature Gran % (Auto) Neut % (Auto) Lymph % (Auto) [place] % (Auto) Eos % (Auto) Baso % (Auto) Lymph # (Auto) [place] # (Auto) Eos # (Auto) Baso # (Auto) Abs Immat Gran (auto) Absolute Neuts (auto) Absolute Nucleated RBC 0.000 Nucleated RBC % (auto) 0.0 Anion Gap 12 Estim Creat Clear Calc 97.2 Estimated GFR > 60 Random Glucose Fasting Glucose 89 Lactic Acid Calcium 8.5 Urine Color Yellow Urine Appearance Clear Urine pH 6.0 Ur Specific [place] 1.010 Urine Protein Negative Urine Glucose (UA) Negative Urine Ketones 15 Urine Blood Negative Urine Nitrite Negative Ur Leukocyte Esterase Moderate (2+) H Urine RBC 0-2 Urine WBC 0-5 Ur Squamous Epith Cells 0-2 Urine Bacteria None Seen Hyaline Casts 0-2 COVID-19 (HAY) Negative COVID-19 Clin Com See Note Influenza Type A (RITIKA) Influenza Type B (RITIKA) Influenza A & B Note S. pyogenes GrpA RITIKA Assessment and Plan (1) Pneumonia: Status: Acute Plan 62F PMH provoked DVT (2007, not on AC), presented with sob sepsis due to left sided pneumonia rocephin, azithro urine strep, legionella, resp viral panel dvt prophylaxis - lovenox full code reason for continued hospitalization:awaiting defervesence, cultures Quality Stroke Does the patient have a stroke diagnosis?: No VTE Prior VTE?: Yes VTE Risk Level:: Medical - moderate - high VTE Device Contraindication: Treatment Not Indicated VTE Drug Contraindication: N/A - Med Ordered
[2023-05-20] MEDS: Enoxaparin Sodium 40 MG/0.4 ML SYRINGE SUBCUT (09:49)
[2023-05-20] MEDS: guaiFEN/Codeine SF 200/20/10ML 10 ML LIQUID 5 ML PO ×2 (09:49→22:17)
[2023-05-20] MEDS: 0.9 % Sodium Chloride Flush 3 ML SYRINGE IVFLUSH ×3 (09:51→20:32)
[2023-05-20 12:56] LABS: Adenovirus PCR Not Detected (Not Detect.); Bordetella parapertussis PCR Not Detected (Not Detect.); Bordetella pertussis PCR Not Detected (Not Detect.); Chlamydia pneumoniae PCR Not Detected (Not Detect.); Coronavirus 229E PCR Not Detected (Not Detect.); Coronavirus HKU1 PCR Not Detected (Not Detect.); Coronavirus NL63 PCR Not Detected (Not Detect.); Coronavirus OC43 PCR Not Detected (Not Detect.); Human metapneumovirus PCR Not Detected (Not Detect.); Influenza A PCR Not Detected (Not Detect.); Influenza B PCR Not Detected (Not Detect.); Mycoplasma pneumoniae PCR Not Detected (Not Detect.); Parainfluenza 1 PCR Not Detected (Not Detect.); Parainfluenza 2 PCR Not Detected (Not Detect.); Parainfluenza 3 PCR Not Detected (Not Detect.); Parainfluenza 4 PCR Not Detected (Not Detect.); RSV PCR Not Detected (Not Detect.); Rhino/Enterovirus PCR Detected (Not Detect.)
[2023-05-20 13:24] LABS: SARS-CoV-2 PCR Not Detected (Not Detect.)
[2023-05-20] MEDS: Azithromycin 500 MG TABLET PO (13:48)
[2023-05-20] MEDS: cefTRIAXone sodium 1 GM in 0.9 % Sodium Chloride 50 ML IV (13:48)
[2023-05-20 15:46] VITALS: BP 117/69; PULSE 90; RESP 18; TEMP 36.6; O2SAT 95
--- NOTE | 2023-05-20 15:54 | MHC.CM.PN ---
PT REPORTS SHE LIVES AT HOME WITH HER AND IS INDEPENDENT WITH CARE SHE HAS NO DME AND NO SERVICES COPY OF HCP REQUESTED PCP: LINCOLN DUMONT DCP: HOME NO SERVICES VIA PRIVATE TRANSPORT
[2023-05-20 19:14] VITALS: BP 135/71; PULSE 90; RESP 18; TEMP 36.3; O2SAT 95
[2023-05-20] MEDS: Acetaminophen 325 MG TABLET 650 MG PO (22:17)
[2023-05-21 02:38] VITALS: BP 101/62; PULSE 69; RESP 18; TEMP 36.2; O2SAT 93
[2023-05-21 07:46] VITALS: BP 113/70; PULSE 72; RESP 20; TEMP 36.4; O2SAT 95
--- NOTE | 2023-05-21 08:34 | P.DS_ITS ---
DS: Providers Provider Date of Service: 05/21/23 Date of admission: 05/19/23 14:54 Primary care physician: Flora Dwyer MD DS: Diagnosis Discharge Diagnosis (1) Pneumonia: Status: Acute DS: Summary Hospital Course Hospital Course: from initial hpi: 62F PMH provoked DVT (2007, not on AC), presented with sob. Patient has been feeling ill for about 3 weeks, shortness of breath, nonproductive cough. About 1 week prior to presentation she went to urgent care and tested positive for strep. Chest x-ray showed 1.7 cm cavitary lesion left mid lung new compared to March 2022. she was given penicillin and prednisone. Prednisone discontinued after having palpitations. She continued to feel poorly and short of breath so came to ED. in ED noted to be tachycardic, leukocytosis, chest x-ray with left lower lobe pneumonia. hospital course: patient was admitted for sepsis due to pneumonia. she was treated with ceftriaxone and azithromycin. cultures were negative, pcr was positive for entero/rhinovirus - unlikely causative agent. urine strep and legionella still pending. symptoms significantly improved, will be discharged on 7 more days of ceftin and azithro. should have repeat cxr in about 1 month. Time Attestation Discharge coordination time: Greater than 30 minutes Quality: Safe Use of Opioids Does Pt have an Active Cancer Diagnosis on the Problem List?: No Quality: Stroke Does the patient have a stroke diagnosis?: No Physical Exam Vital Signs: Vital Signs: Last Vital Signs Temp 97.6 F 05/21/23 07:46 Pulse 72 05/21/23 07:46 Resp 20 05/21/23 07:46 BP 113/70 05/21/23 07:46 Pulse Ox 95 05/21/23 07:46 O2 Del Method Room Air 05/21/23 07:46 BMI result Body Mass Index 32.5 General: AO X 3, no acute distress Resp: Crackles on left, no accessory muscles used CVS: S1,S2,RRR GI: soft, non tender, non distended Neuro: motor grossly intact, alert Psych: appropriate affect, appropriate insight DS: Data Data Completed and Pending Labs on day of discharge: Laboratory Results - last 24 hr 05/19/23 15:28 Respiratory Panel Kend[place] See Note Adenovirus (Rapid PCR) Not Detected B.pert (TEM-PCR) Not Detected B.parapertussis DNA PCR Not Detected C. pneumoniae DNA (PCR) Not Detected Coronavirus OC43 (PCR) Not Detected Coronavirus HKU1 (PCR) Not Detected Coronavirus 229E (PCR) Not Detected Coronavirus NL63 (PCR) Not Detected Human Metapneumovir PCR Not Detected Influenza A (RT-PCR) Not Detected Influenza B (RT-PCR) Not Detected M. pneumoniae (PCR) Not Detected Parainfluenza 1 (PCR) Not Detected Parainfluenza 2 (PCR) Not Detected Parainfluenza 3 (PCR) Not Detected Parainfluenza 4 (PCR) Not Detected RSV (PCR) Not Detected Entero/Rhino (PCR) Detected A SARS-CoV-2 RNA (RT-PCR) Not Detected Preliminary micro results at discharge 05/19/23 13:40 Blood Culture - Preliminary Blood - Venous No growth after 24 hours. 05/19/23 13:37 Blood Culture - Preliminary Blood - Venous No growth after 24 hours. Discharge Plan Discharge Anticipated Discharge Date/Time: 05/21/23 08:32 Patient Disposition: Home, Self-Care Discharge Diagnosis: pneumonia Referrals: Flora Dwyer MD [Primary Care Provider] - 1 Week Discharge Medications: New azithromycin 500 mg Tablet 500 mg PO Q24H Qty: 7 0RF cefuroxime axetil 500 mg tablet 500 mg PO BID Qty: 14 0RF Continued albuterol sulfate 90 mcg/actuation HFA aerosol inhaler 2 puff INHALATION Q6H PRN (Reason: wheezing) acetaminophen 325 mg Tablet 650 mg PO Q6H PRN (Reason: Pain) ibuprofen 200 mg Tablet 400 mg PO Q6H PRN (Reason: Pain) vitamin B complex Tablet 1 tab PO DAILY cholecalciferol (vitamin D3) [Vitamin D3] 10 mcg (400 unit) Tablet 10 mcg PO DAILY loratadine [Allergy Relief (loratadine)] 10 mg tablet 10 mg PO DAILY PRN (Reason: seasonal allergies) Discharge Orders: Discharge Order (Routine); Ordered 05/21/23 Ordered By: Rex Bell Diet: Advance to usual diet Activity on Discharge: As tolerated Stand Alone Forms: Patient Portal Discharge page Other Ambulatory Orders: XR chest 2V (Routine) Timeframe: 1 Month Facility: [facility] - Location: Radiology Ordered By: Rex Bell Care Plan Goals: recovery Health Concerns: pneumonia Plan of Treatment: 7 days ceftin and azitrho follow up imaging in about 3-4 weeks Assessment: see above
--- NOTE | 2023-05-21 09:15 | MHC.CM.PN ---
PT TO DC HOME TODAY WITH NO SERVICES VIA PRIVATE TRANSPORT
[2023-05-22 15:13] LABS: Strep Pneumo Ag urine Not Detected (Not Detected)
[2023-05-24 06:12] LABS: Legionella Ag Urine Not Detected (Not Detected)
== END 2023-05-21 09:50 | disposition home or self-care (01) | DRG 720 ==
LOC: HO.ED 14:34 → HO.EDOVER 14:59 → HO.S3 17:29
PROVIDERS: Admitting Provider Internal Medicine; Emergency Provider Emergency Medicine; PCP Internal Medicine; Visit Provider Internal Medicine
DX: A41.9 Sepsis, unspecified organism (principal); J18.9 Pneumonia, unspecified organism; Z20.822 Contact with and (suspected) exposure to COVID-19; Z86.718 Personal history of other venous thrombosis and embolism; Z87.891 Personal history of nicotine dependence; Z79.899 Other long term (current) drug therapy
CPT/HCPCS: 36415; 71046; 71250; 80048; 81001; 83605; 85025; 85027; 87040; 87086; 87088; 87186; 87449; 87502; 87633; 87635; 87651; 87899; 99285; J0456; J0696; J1650

== ENCOUNTER → 2023-05-19 14:54 | Outpatient (BNV) | payer BC, SELFPAY | PROVIDERS: Admitting Provider Internal Medicine; Emergency Provider Emergency Medicine; PCP Internal Medicine; Visit Provider Internal Medicine | DX: A41.9 Sepsis, unspecified organism (principal); J18.9 Pneumonia, unspecified organism | CPT/HCPCS: 99223; 99232; 99238 ==

== ENCOUNTER 2023-09-11 14:35 | Outpatient (AMB) | payer BC, SELFPAY ==
[2023-09-11 14:39] VITALS: PULSE 84; O2SAT 98; BMI 31.5
--- NOTE | 2023-09-11 14:39 | MHC.OFFVIS ---
Vital Signs 09/11/23 14:39 Height 5 ft 2 in Weight 172 lb BMI 31.5 Pulse 84 Pulse Source Pulse Oximeter Pulse Oximetry (%) 98 Oxygen Delivery Method Room Air Intake Visit Reasons: lung cavity lesion Allergies No Known Allergies Allergy (Verified 09/11/23 14:40) HPI Comments Details: The patient is here for a pulmonary evaluation. The patient is a 63 year woman with a known history of a large hiatal hernia with ongoing symptoms. She started developing worsening respiratory symptoms and cough. She was evaluated by primary care doctor was given a order for chest x-ray. Patient had that x-ray back in May. I did personally reviewed the initial chest x-ray demonstrating the large hiatal hernia and also a opacity in the left infrahilar area suggesting of a cavitary lesion. She was placed on antibiotics however her symptoms worsen and a week later she went to the [facility] ED for further evaluation. Her x-ray also personally by me demonstrating interval worsening of airspace disease on the left hemithorax. She then underwent a CT scan of the chest which I also personally reviewed demonstrating significant bronchiolitis and bronchopneumonia involving the left upper lobe, left lower lobe and also right lower lobe. Again the hiatal hernia present. Had significant bronchiolitis bringing the possibility of either staph infection or aspiration related. Specially with her hiatal hernia. The patient then did follow-up with her primary care doctor in a repeat CT scan was ordered which I also personally reviewed demonstrating interval improvement of the airspace disease although still with evidence of bronchiolitis and some interstitial disease although significantly improved. Does have some evidence of bronchiectasis which could be chronic due to chronic micro aspirations. In addition to that, the patient did have a left lower lobe pulmonary nodule measuring around 7 mm in size. appears to be well-circumscribed may have some calcium. It was not mentioned in the report and I do believe it is important to follow this nodule. And should not be evaluated or assess based on the significant airspace disease that she had initially with the 1st CT scan [place]. The patient still complains of chest congestion cough productive phlegm yellowish in color. Moderate severity. Will go ahead and try to get a sputum culture then afterwards she can start doxycycline. Will plan to repeat a CT scan around 3-4 months for her lost 1 to make sure that there is resolution of the airspace disease and also to follow-up with the intermediate size pulmonary nodule in the left lower lobe. The patient also of note is complaining of difficulty swallowing feels like food is getting stuck . She was supposed to have an endoscopy at some point but she was not able to make the appointment since she was not [place] the time that she was call. In addition to the we talked about the importance of reflux diet. [facility] [place] Medical History (Updated 09/11/23 @ 23:21 by Gerard Mcgraw MD) Pulmonary nodule History of postoperative nausea and vomiting DVT (deep venous thrombosis) Hiatal hernia Renal calculi Ventral hernia Surgical History S/P repair of ventral hernia (05/31/22) History of ventral hernia repair History of bunionectomy H/O colonoscopy Hx of varicose vein ligation Hx of lithotripsy Bunion delivery delivered Family History Mother Breast cancer Maternal Grandmother Stomach cancer Father Chronic emphysema syndrome Hypertension Social History Household Members: Spouse and Family Housing: House Do you presently have visiting nurse or other home services: No Alcohol intake: current Alcohol intake frequency: does not drink Patient Tobacco Use Status: Former Tobacco user Tobacco use type: Cigarette Years Smoked: 12 service: No Current occupational status: employed Current occupation: Hairdresser Review of Systems Const Denies fever(s) Eyes Reports no additional complaints ENT Reports dysphagia and Reports nasal congestion Card Denies chest pain Resp Reports change in phlegm color, Reports chest congestion, Reports cough and Denies wheezing GI Reports dysphagia, Reports dyspepsia and Reports heartburn Musc Reports no additional complaints Skin/Breast Denies rash Parag/Lymph Denies lymphadenopathy Aller/Immun Denies wheezing Physical Exam Vital Signs: Last Vital Signs Pulse 84 09/11/23 14:39 Pulse Ox 98 09/11/23 14:39 Oxygen Delivery Method Room Air 09/11/23 14:39 BMI result Body Mass Index 31.5 Const General: comfortable Neck Neck: Yes supple Chest Chest palpation & inspection: normal inspection of the chest Resp Effort & Inspection: normal respiratory effort Auscultation: rhonchi and diminished lung sounds Cardio Heart sounds: S1 normal heart sound present and S2 normal heart sound present GI Palpation (GI): Soft to palpation Skin General skin exam: no rashes or lesions noted Extrem General: Yes no clubbing, cyanosis or edema Assessment & Plan Assessment & Plan (1) Pneumonia: Code(s): J18.9 - Pneumonia, unspecified organism Category: Medical Qualifiers: Pneumonia type: due to unspecified organism Laterality: bilateral Lung location: unspecified part of lung Qualified Code(s): J18.9 - Pneumonia, unspecified organism (2) Hiatal hernia: Code(s): K44.9 - Diaphragmatic hernia without obstruction or gangrene Category: Medical (3) Pulmonary nodule: Code(s): R91.1 - Solitary pulmonary nodule Category: Medical Plan sputum cx start Doxycycline in the meantime repeat CT chest Orders: Orders Sputum Cult + Gram stain Today J18.9 - Pneumonia, unspecified organism CT chest wo IV con 6 Weeks R91.1 - Solitary pulmonary nodule Medications: New doxycycline monohydrate 100 mg PO BID 14 days 28 tabs 0RF Coding Level of Care Code New Pt Level 5 (79020) Diagnoses Pneumonia of both lungs due to infectious organism, unspecified part of lung J18.9 Pneumonia type: due to unspecified organism Laterality: bilateral Lung location: unspecified part of lung Hiatal hernia K44.9 Pulmonary nodule R91.1 Time Spent (min) 60
== END 2023-09-11 15:12 | disposition home or self-care (01) ==
PROVIDERS: PCP Internal Medicine; Visit Provider Hospitalist
DX: J18.9 Pneumonia, unspecified organism (principal); R91.1 Solitary pulmonary nodule; K44.9 Diaphragmatic hernia without obstruction or gangrene
CPT/HCPCS: 99205

== ENCOUNTER → 2023-09-11 14:35 | Outpatient (BNVA) | payer BC, SELFPAY | PROVIDERS: PCP Internal Medicine; Visit Provider Hospitalist ==

== ENCOUNTER 2023-09-13 10:48 | Outpatient (REF) | payer BC, SELFPAY | END 2023-09-13 10:49 | disposition home or self-care (01) | LOC: HO.LNP 10:48 | PROVIDERS: Visit Provider Hospitalist | DX: J18.9 Pneumonia, unspecified organism (principal) | CPT/HCPCS: 87070; 87205 ==

== ENCOUNTER 2023-10-17 07:27 | Outpatient (REF) | payer BC, SELFPAY ==
--- NOTE | ~2023-10-17 | CT_ITS ---
EXAMINATION: CT CHEST WITHOUT CONTRAST CLINICAL INFORMATION: Solitary pulmonary nodule. Follow-up prior left lower lobe consolidation. COMPARISON: 05/19/2023. TECHNIQUE: Multidetector volumetric CT imaging of the chest was done. Axial MIP volume rendering provided. Sagittal and coronal reformatted images were obtained. This CT examination was performed using dose optimization techniques as appropriate, variously including the following: *Automated exposure control *Adjustment of mA and/or kV according to patient size (this includes techniques or standardized protocols for targeted exams where dose is matched to indication/reason for exam; i.e. extremities or head) *Use of iterative reconstruction technique DLP: 216 mGy-cm FINDINGS: NODULES: (As seen on series 7): -A few tiny calcified granulomata are noted scattered bilaterally. These are benign. -4 mm triangular-shaped nodule in the left lateral costophrenic sulcus, subpleural, likely an intrapulmonary lymph node (image 493). This was likely obscured on the prior study due to lower lobe consolidation. -No enlarging or suspicious nodules. LUNGS: -Previously seen extensive airspace disease most notable lower lobe with air bronchograms, has resolved on today's examination. No definite active recurrent disease identified. -There is a small pneumatocele in the superior segment left lower lobe. -No consolidations or groundglass opacities. Mild scarring in the posterior left lower lobe and lingula. -Mild diffuse bronchiectasis without definite bronchial wall thickening or endobronchial mucous plugging. -Central airways are patent without abnormality. -No pleural effusion or mass. MEDIASTINUM: -Normal thyroid. -No abnormal lymphadenopathy in the mediastinum or hilum. -Aorta is normal in caliber and course. -Main pulmonary arteries are normal in size. -Heart size is normal. No pericardial effusion. -There is a prominent type III hiatus hernia present containing the majority of the fundus of the stomach. -Esophagus is otherwise normal. CORONARY ARTERY CALCIFICATION: None visualized on this study. CHEST WALL/AXILLA: No lymphadenopathy. UPPER ABDOMEN: Borderline splenic enlargement. -Diverticulosis in the imaged aspects of the colon. -Large type III hiatus hernia. OSSEOUS STRUCTURES: No suspicious lytic or blastic bone lesions.. CT/CT chest wo IV con IMPRESSION: 1. Resolution of previously seen extensive consolidation most notable in the left lower lobe. Lungs are now clear. No active disease. 2. Mild diffuse bronchiectasis with bronchial wall thickening or filling defect. 3. 4 mm left lateral costophrenic sulcus nodule. Otherwise, no enlarging, new, or suspicious nodules. A few scattered calcified granulomata are present. 4. Large type III hiatus hernia. 5. Additional ancillary findings as discussed in the body of report. Recommend one year follow-up exam in a high-risk patient. In a low-risk patient, no further follow-up required. Fleischner guidelines were followed. Electronically signed by: Aayush Bueno MD 11/23/2023 11:36 AM EDT
== END 2023-10-17 07:28 | disposition home or self-care (01) ==
LOC: HO.CT 07:27
PROVIDERS: Visit Provider Hospitalist
DX: R91.1 Solitary pulmonary nodule (principal)
CPT/HCPCS: 71250

== ENCOUNTER → 2023-10-17 07:35 | Outpatient (BNV) | payer BC, SELFPAY | PROVIDERS: Visit Provider Radiology Diagnostic Radiology | DX: R91.1 Solitary pulmonary nodule (principal) | CPT/HCPCS: 71250 ==

== ENCOUNTER 2023-11-17 07:54 | Outpatient (REF) | payer BC, SELFPAY ==
--- NOTE | ~2023-11-17 | FL_ITS ---
EXAMINATION: XR FLUOROSCOPY UPPER GI WITH AIR CLINICAL INFORMATION: Hiatal hernia. Reflux. Recent history of pneumonia COMPARISON: None TECHNIQUE: Fluoroscopic air contrast upper GI examination was performed utilizing standard techniques with thin and thick barium and effervescent granules. Numerous spot images were obtained. FINDINGS: Images of the oropharynx and hypopharynx demonstrate a normal swallow mechanism with normal epiglottic inversion and soft palate elevation. No tracheal penetration, glottic or subglottic aspiration identified. No nasopharyngeal reflux present. A small pharyngeal pouch is present. Mild cricopharyngeal achalasia is present. Dual and single contrast images of the esophagus demonstrate a mildly patulous esophagus. No evidence of stricture, mass, or ulcerations identified. Esophageal peristalsis is moderately disorganized. There is narrowing of the GE junction to a moderate degree, which is smooth and short segment, suggesting achalasia. A large paraesophageal hernia is present, with the majority of the fundus located in the intrathoracic cavity. No significant gastroesophageal reflux was seen during the course of the examination and on reflux views. Dual contrast and single contrast images of the stomach demonstrate the fundus of the stomach located in the thoracic cavity. The gastric rugal folds have a thickened, which suggests gastritis. There are multiple tiny foci of contrast pooling in the fundus and body of the stomach that likely represents small superficial aphthous ulcers. No masses are present. Contrast freely passed into the gastric antrum and duodenal bulb without delay. Single and air-contrast images of the duodenal bulb demonstrate no abnormality. The duodenal sweep has a normal appearance, course, and mucosal fold appearance. The imaged proximal jejunum has a normal fold pattern and caliber. FLUOROSCOPY TIME: 4 minutes 17 seconds Number of Spot Images: 8 Number of Cine: 14 DOSE AREA PRODUCT: 2471 uGy-m2 (microgray-meter squared) FL/FL barium swallow with air IMPRESSION: 1. Findings highly suggesting moderate achalasia at the GE junction. 2. Mildly patulous esophagus with mildly disorganized esophageal peristalsis consistent with esophageal dysmotility. 3. Large paraesophageal hernia with the majority the fundus located in the intrathoracic cavity. 4. Thickened gastric rugal folds. In addition there are multiple tiny foci of contrast pooling in the fundus and body the stomach. These findings are suggestive of erosive gastritis. Recommend correlation with EGD. This procedure was performed by Kimo Acuna PA-C, and supervised by Dr. Bueno
== END 2023-11-17 07:55 | disposition home or self-care (01) ==
LOC: HO.XRAY 07:54
PROVIDERS: PCP Internal Medicine; Visit Provider Hospitalist
DX: K21.9 Gastro-esophageal reflux disease without esophagitis (principal); K44.9 Diaphragmatic hernia without obstruction or gangrene
CPT/HCPCS: 74221

== ENCOUNTER → 2023-11-17 07:56 | Outpatient (BNV) | payer BC, SELFPAY | PROVIDERS: PCP Internal Medicine; Visit Provider Physician Assistant Surgical | DX: K44.9 Diaphragmatic hernia without obstruction or gangrene (principal); K21.9 Gastro-esophageal reflux disease without esophagitis | CPT/HCPCS: 74246 ==

== ENCOUNTER 2023-12-26 09:03 | Outpatient (AMB) | payer BC, SELFPAY ==
[2023-12-26 09:11] VITALS: BP 126/78; PULSE 85; O2SAT 97; BMI 33.1
--- NOTE | 2023-12-26 09:11 | A.OFFVIS_ITS ---
Vital Signs 12/26/23 09:11 Height 5 ft 2 in Weight 180 lb 12.465 oz BMI 33.1 BP 126/78 Blood Pressure Location Lt brachial Position Sitting Pulse 85 Pulse Source Pulse Oximeter Pulse Oximetry (%) 97 Oxygen Delivery Method Room Air Intake Visit Reasons: Lung Cavity Lesion Rate Analyst Required: No Allergies No Known Allergies Allergy (Verified 12/26/23 09:16) HPI Comments Details: The patient is a 63 year woman with a known history of a large hiatal hernia with ongoing symptoms. She started developing worsening respiratory symptoms and cough. She was evaluated by primary care doctor was given a order for chest x-ray. Patient had that x-ray back in May. I did personally reviewed the initial chest x-ray demonstrating the large hiatal hernia and also a opacity in the left infrahilar area suggesting of a cavitary lesion. She was placed on antibiotics however her symptoms worsen and a week later she went to the [facility] ED for further evaluation. Her x-ray also personally by me demonstrating interval worsening of airspace disease on the left hemithorax. She then underwent a CT scan of the chest which I also personally reviewed demonstrating significant bronchiolitis and bronchopneumonia involving the left upper lobe, left lower lobe and also right lower lobe. Again the hiatal hernia present. Had significant bronchiolitis bringing the possibility of either staph infection or aspiration related. Specially with her hiatal hernia. The patient then did follow-up with her primary care doctor in a repeat CT scan was ordered which I also personally reviewed demonstrating interval improvement of the airspace disease although still with evidence of bronchiolitis and some interstitial disease although significantly improved. Does have some evidence of bronchiectasis which could be chronic due to chronic micro aspirations. In addition to that, the patient did have a left lower lobe pulmonary nodule measuring around 7 mm in size. appears to be well-circumscribed may have some calcium. It was not mentioned in the report and I do believe it is important to follow this nodule. And should not be evaluated or assess based on the significant airspace disease that she had initially with the 1st CT scan [place]. The patient still complains of chest congestion cough productive phlegm yellowish in color. Moderate severity. Will go ahead and try to get a sputum culture then afterwards she can start doxycycline. Will plan to repeat a CT scan around 3-4 months for her lost 1 to make sure that there is resolution of the airspace disease and also to follow-up with the intermediate size pulmonary nodule in the left lower lobe. The patient also of note is complaining of difficulty swallowing feels like food is getting stuck . She was supposed to have an endoscopy at some point but she was not able to make the appointment since she was not [place] the time that she was call. In addition to the we talked about the importance of reflux diet. 12/26/2023 the patient is here for a pulmonary follow-up visit. Overall he she is doing a lot better. No evidence of any recurrent pneumonia although she does have chronic bronchitis. She did have a repeat CT scan of the chest demonstrating some interval resolution of the airspace disease although she still has some bronchiectatic changes. In addition to that she has a large hiatal hernia. She did have also an abnormal barium swallow. She is scheduled to see GI and undergoing endoscopy in the coming months. She should be evaluated for Rausch's. Also there is a question of tightening or stenosis of the esophagus at the level of the GE junction. In the meantime with a chronic bronchitis be reasonable to treat her with the macrolide therapy as a promotility agent to help her with her GI secretions and also hopefully treat her for the chronic bronchitis that she is still having some chest congestion. The patient does have history of allergies. She is wondering if her cough could be related to also to allergies. The patient is able to come back and get blood work at some point. In addition to that we can also address any questions of immunocompromised state that may be resulting in chronic bronchitis. She will continue the azithromycin 3 times a week for least couple months. She will come in for an EKG to make sure that QT interval was within normal limits while on the medication. And she will follow-up in 2-3 months to see her progress. [facility] Medical History (Updated 12/26/23 @ 21:13 by Gerard Mcgraw MD) Bronchiectasis Bronchitis Pulmonary nodule History of postoperative nausea and vomiting DVT (deep venous thrombosis) Hiatal hernia Renal calculi Ventral hernia Surgical History S/P repair of ventral hernia (05/31/22) History of ventral hernia repair History of bunionectomy H/O colonoscopy Hx of varicose vein ligation Hx of lithotripsy Bunion delivery delivered Family History Mother Breast cancer Maternal Grandmother Stomach cancer Father Chronic emphysema syndrome Hypertension Social History Household Members: Spouse and Family Housing: House Do you presently have visiting nurse or other home services: No Alcohol intake: current Alcohol intake frequency: does not drink Patient Tobacco Use Status: Former Tobacco user Tobacco use type: Cigarette Years Smoked: 12 service: No Current occupational status: employed Current occupation: Hairdresser Review of Systems Const Denies fever(s) Eyes Reports no additional complaints ENT Reports dysphagia and Reports nasal congestion Card Denies chest pain Resp Reports change in phlegm color, Reports chest congestion, Reports cough and Denies wheezing GI Reports dysphagia, Reports dyspepsia and Reports heartburn Musc Reports no additional complaints Skin/Breast Denies rash Parag/Lymph Denies lymphadenopathy Aller/Immun Denies wheezing Physical Exam Vital Signs: Last Vital Signs Pulse 85 12/26/23 09:11 BP 126/78 12/26/23 09:11 Pulse Ox 97 12/26/23 09:11 Oxygen Delivery Method Room Air 12/26/23 09:11 BMI result Body Mass Index 33.1 Const General: comfortable Neck Neck: Yes supple Chest Chest palpation & inspection: normal inspection of the chest Resp Effort & Inspection: normal respiratory effort Auscultation: rhonchi and diminished lung sounds Cardio Heart sounds: S1 normal heart sound present and S2 normal heart sound present GI Palpation (GI): Soft to palpation Skin General skin exam: no rashes or lesions noted Extrem General: Yes no clubbing, cyanosis or edema Assessment & Plan Assessment & Plan (1) Pneumonia: Comment: resolved Code(s): J18.9 - Pneumonia, unspecified organism Category: Medical Qualifiers: Laterality: bilateral Lung location: unspecified part of lung Pneumonia type: due to unspecified organism Qualified Code(s): J18.9 - Pneumonia, unspecified organism (2) Hiatal hernia: Code(s): K44.9 - Diaphragmatic hernia without obstruction or gangrene Category: Medical (3) Pulmonary nodule: Code(s): R91.1 - Solitary pulmonary nodule Category: Medical (4) Bronchiectasis: Code(s): J47.9 - Bronchiectasis, uncomplicated Category: Medical Qualifiers: Bronchiectasis type: uncomplicated Qualified Code(s): J47.9 - Bronchiectasis, uncomplicated Plan bloodwork start azithromycin MWF as apromotility agent EKG GILBERTO as needed reflux diet sleep elevated EGD scheduled F/U 2-3 months Orders: Orders Resp Allergy Profile Region I Today J40 - Bronchitis, not specified as acute or chronic, R91.1 - Solitary pulmonary nodule, T78.40XA - Allergy, unspecified, initial encounter Immunoglobulin G Subclasses Today J40 - Bronchitis, not specified as acute or chronic Erythrocyte Sedimentation Rate Today J40 - Bronchitis, not specified as acute or chronic ECG 12 lead EKG Today J44.9 - Chronic obstructive pulmonary disease, unspecified Complete Blood Count Auto Diff Today J40 - Bronchitis, not specified as acute or chronic Immunoglobulin E Today J40 - Bronchitis, not specified as acute or chronic Immunoglobulins,IgG IgA IgM Today J40 - Bronchitis, not specified as acute or chronic Medications: New azithromycin Take 1 tablet on Monday/Monday/Monday 250 mg PO 3XW 28 days 12 tabs 6RF K21.9 - Gastro-esophageal reflux disease without esophagitis Coding Level of Care Code Est Pt Level 4 (15282) Diagnoses Pneumonia of both lungs due to infectious organism, unspecified part of lung J18.9 Laterality: bilateral Lung location: unspecified part of lung Pneumonia type: due to unspecified organism Hiatal hernia K44.9 Pulmonary nodule R91.1 Bronchiectasis without complication J47.9 Bronchiectasis type: uncomplicated Time Spent (min) 18
== END 2023-12-26 09:37 | disposition home or self-care (01) ==
PROVIDERS: PCP Internal Medicine; Visit Provider Hospitalist
DX: J18.9 Pneumonia, unspecified organism (principal); K44.9 Diaphragmatic hernia without obstruction or gangrene; R91.1 Solitary pulmonary nodule; J47.9 Bronchiectasis, uncomplicated
CPT/HCPCS: 99214

== ENCOUNTER → 2023-12-26 09:03 | Outpatient (BNVA) | payer BC, SELFPAY | PROVIDERS: PCP Internal Medicine; Visit Provider Hospitalist ==

== ENCOUNTER → 2024-02-21 07:35 | Outpatient (REF) | payer BC, SELFPAY ==
--- NOTE | 2024-02-21 07:40 | ECG_ITS ---
Test Reason : copd Blood Pressure : / mmHG Vent. Rate : 077 BPM Atrial Rate : 077 BPM P-R Int : 126 ms QRS Dur : 072 ms QT Int : 410 ms P-R-T Axes : 048 026 035 degrees QTc Int : 463 ms Normal sinus rhythm Normal ECG No previous ECGs available Referred By: Gerard Mcgraw Electronically Signed By:KEITH JOSEPH MD
[2024-02-21 07:55] LABS: MANUAL DIFF FLAG NO
[2024-02-21 08:27] LABS: Basophils Absolute Auto 0.1 X10*3/uL (0.0-0.2); Basophils Percent Auto 1.1 % (0-2); Eosinophils Absolute Auto 0.2 X10*3/uL (0.0-0.4); Eosinophils Percent Auto 2.8 % (0-4); Hematocrit 46.5 % (37.0-47.0); Hemoglobin 15.5 g/dl (12.0-16.0); Imm Gran Abs Auto 0.03 X10*3/uL (0.00-0.03); Imm Gran Pct Auto 0.6 % (0.0-0.4); Lymphocytes Absolute Auto 1.2 X10*3/uL (1.2-4.9); Lymphocytes Percent Auto 22.8 % (20-40); Mean Corpuscular HGB Conc 33.3 g/dl (31.0-35.0); Mean Corpuscular Volume 80.9 fL (80.0-98.0); Mean Platelet Volume 9.2 fL (9.4-12.3); Monocytes Absolute Auto 0.5 X10*3/uL (0.1-1.2); Monocytes Percent Auto 8.4 % (2-11); Neutrophils Absolute Auto 3.5 x10*3/uL (2.0-8.3); Neutrophils Percent Auto 64.3 % (45-73); Platelet Count 235 X10*3/uL (160-400); Red Blood Count 5.75 X10*6/uL (4.20-5.50); Red Cell Distribution Width 14.4 % (11.0-16.0); White Blood Count 5.4 X10*3/uL (4.8-10.8)
[2024-02-21 09:23] LABS: Erythrocyte Sedimentation Rate 4 MM/HR (0-20)
[2024-02-23 00:38] LABS: IgA 157 mg/dL (70-320); IgG 946 mg/dL (600-1540); IgM 115 mg/dL (50-300)
[2024-02-23 23:18] LABS: Class Alternaria alternata 0/1; Class Aspergillus fumigatus 0; Class Bermuda Grass 0/1; Class Birch 1; Class Cat Dander 0; Class Cladosporium herbarum 0; Class Cockroach 0; Class Common Ragweed 2; Class Cottonwood 0; Class Derm. pterony 0; Class Dermatophagoides farinae 0; Class Dog Dander 0; Class Elm 0; Class Maple Box Elder 0; Class Mountain Cedar 0; Class Mouse Urine Protein 0; Class Mugwort 0/1; Class Oak 0/1; Class Penicillium crysogenum 0; Class Rough Pigweed 0; Class Sheep Sorrel 0; Class Sycamore 0; Class Timothy Grass 2; Class Walnut Tree 0; Class White Ash 0; Class White Mulberry 0; D001 IgE D pteronyssinus <0.10 kU/L; D002 - IgE D farinae <0.10 kU/L; E001 - IgE Cat Dander <0.10 kU/L; E005 - IgE Dog Dander <0.10 kU/L; E072-IgE Mouse Urine <0.10 kU/L; G002 IgE Bermuda Grass 0.18 kU/L; G006 - IgE Timothy Grass 1.15 kU/L; I006-IgE Cockroach, German <0.10 kU/L; Immunoglobulin E 21 kU/L (<OR=114); M001 IgE Penicillium chrysogen <0.10 kU/L; M002 - IgE Cladosporium herbar <0.10 kU/L; M003 - IgE Aspergillus fumigat <0.10 kU/L; M006 - IgE Alternaria alternat 0.24 kU/L; T001 IgE Maple/Box Elder <0.10 kU/L; T003 IgE Common Silver Birch 0.37 kU/L; T006 - IgE Cedar, Mountain <0.10 kU/L; T007 - IgE Oak, White 0.29 kU/L; T008 IgE Elm, American <0.10 kU/L; T010 - IgE Walnut <0.10 kU/L; T011 - IgE Maple Leaf Sycamore <0.10 kU/L; T014 - IgE Cottonwood <0.10 kU/L; T015 - IgE Ash, White <0.10 kU/L; T070 - IgE White Mulberry <0.10 kU/L; W001 - IgE Ragweed, Short 2.19 kU/L; W006 - IgE Mugwort 0.13 kU/L; W014 IgE Pigweed, Common <0.10 kU/L; W018 IgE Sheep Sorrel <0.10 kU/L
[2024-02-26 12:08] LABS: Immunoglobulin G Subclass 1 529 mg/dL (382-929); Immunoglobulin G Subclass 2 125 mg/dL (241-700); Immunoglobulin G Subclass 3 81 mg/dL (22-178); Immunoglobulin G Subclass 4 8.5 mg/dL (4-86); Immunoglobulin G Total 829 mg/dL (600-1540)
== END ==
LOC: HO.CARD 07:35
PROVIDERS: PCP Internal Medicine; Visit Provider Hospitalist
DX: J44.9 Chronic obstructive pulmonary disease, unspecified (principal); J40 Bronchitis, not specified as acute or chronic; R91.1 Solitary pulmonary nodule; T78.40XA Allergy, unspecified, initial encounter
CPT/HCPCS: 36415; 82784; 82785; 85025; 85652; 86003; 93005

== ENCOUNTER → 2024-02-21 07:40 | Outpatient (BNV) | payer BC, SELFPAY | PROVIDERS: PCP Internal Medicine; Visit Provider Internal Medicine Cardiovascular Disease | DX: J44.9 Chronic obstructive pulmonary disease, unspecified (principal) | CPT/HCPCS: 93010 ==

== ENCOUNTER 2024-02-28 09:36 | Outpatient (AMB) | payer BC, SELFPAY ==
[2024-02-28 09:41] VITALS: BP 108/80; PULSE 75; O2SAT 98; BMI 32.3
--- NOTE | 2024-02-28 09:41 | A.OFFVIS_ITS ---
Vital Signs 02/28/24 09:41 Height 5 ft 2 in Weight 176 lb 5.917 oz BMI 32.3 BP 108/80 Blood Pressure Location Lt brachial Position Sitting Pulse 75 Pulse Source Pulse Oximeter Pulse Oximetry (%) 98 Oxygen Delivery Method Room Air Intake Visit Reasons: Lung Cavity Lesion Retail Administrative Assistant Required: No Allergies No Known Allergies Allergy (Verified 02/28/24 09:43) HPI Comments Details: The patient is a 63 year woman with a known history of a large hiatal hernia with ongoing symptoms. She started developing worsening respiratory symptoms and cough. She was evaluated by primary care doctor was given a order for chest x-ray. Patient had that x-ray back in May. I did personally reviewed the initial chest x-ray demonstrating the large hiatal hernia and also a opacity in the left infrahilar area suggesting of a cavitary lesion. She was placed on antibiotics however her symptoms worsen and a week later she went to the [facility] ED for further evaluation. Her x-ray also personally by me demonstrating interval worsening of airspace disease on the left hemithorax. She then underwent a CT scan of the chest which I also personally reviewed demonstrating significant bronchiolitis and bronchopneumonia involving the left upper lobe, left lower lobe and also right lower lobe. Again the hiatal hernia present. Had significant bronchiolitis bringing the possibility of either staph infection or aspiration related. Specially with her hiatal hernia. The patient then did follow-up with her primary care doctor in a repeat CT scan was ordered which I also personally reviewed demonstrating interval improvement of the airspace disease although still with evidence of bronchiolitis and some interstitial disease although significantly improved. Does have some evidence of bronchiectasis which could be chronic due to chronic micro aspirations. In addition to that, the patient did have a left lower lobe pulmonary nodule measuring around 7 mm in size. appears to be well-circumscribed may have some calcium. It was not mentioned in the report and I do believe it is important to follow this nodule. And should not be evaluated or assess based on the significant airspace disease that she had initially with the 1st CT scan [place]. The patient still complains of chest congestion cough productive phlegm yellowish in color. Moderate severity. Will go ahead and try to get a sputum culture then afterwards she can start doxycycline. Will plan to repeat a CT scan around 3-4 months for her lost 1 to make sure that there is resolution of the airspace disease and also to follow-up with the intermediate size pulmonary nodule in the left lower lobe. The patient also of note is complaining of difficulty swallowing feels like food is getting stuck . She was supposed to have an endoscopy at some point but she was not able to make the appointment since she was not [place] the time that she was call. In addition to the we talked about the importance of reflux diet. 12/26/2023 the patient is here for a pulmonary follow-up visit. Overall he she is doing a lot better. No evidence of any recurrent pneumonia although she does have chronic bronchitis. She did have a repeat CT scan of the chest demonstrating some interval resolution of the airspace disease although she still has some bronchiectatic changes. In addition to that she has a large hiatal hernia. She did have also an abnormal barium swallow. She is scheduled to see GI and undergoing endoscopy in the coming months. She should be evaluated for Rausch's. Also there is a question of tightening or stenosis of the esophagus at the level of the GE junction. In the meantime with a chronic b ronchitis be reasonable to treat her with the macrolide therapy as a promotility agent to help her with her GI secretions and also hopefully treat her for the chronic bronchitis that she is still having some chest congestion. The patient does have history of allergies. She is wondering if her cough could be related to also to allergies. The patient is able to come back and get blood work at some point. In addition to that we can also address any questions of immunocompromised state that may be resulting in chronic bronchitis. She will continue the azithromycin 3 times a week for least couple months. She will come in for an EKG to make sure that QT interval was within normal limits while on the medication. And she will follow-up in 2-3 months to see her progress. 02/28/2024 the patient is here for a pulmonary follow-up visit. Overall she is doing well from a respiratory status. She continues to follow closely the reflux diet. She is trying sleep elevated with a wedge. The patient did try the azithromycin promotility agent for month. It did help her and she stopped it afterwards. She does have some congestion usually in the morning. She coughs up some phlegm usually in the morning which is usually clear to beige in color. She will need an Acapella valve to help with mucus clearance and chest physical therapy. I will send went to the local [email or web address]. In addition to that the patient is scheduled to undergo an endoscopy in the coming months. We did review her blood work. She does have allergies very mild to mold in addition to that does have significant allergies to ragweed typically in the end of the summer. The patient also complains of some daytime drowsiness. Her [place] score is elevated 02/24. Likely due to the change in sleeping position. Will go ahead and request a home sleep study for her at this time. [facility] Medical History (Updated 02/28/24 @ 10:21 by Gerard Mcgraw MD) Bronchiectasis Bronchitis Pulmonary nodule History of postoperative nausea and vomiting DVT (deep venous thrombosis) Hiatal hernia Renal calculi Ventral hernia Surgical History S/P repair of ventral hernia (05/31/22) History of ventral hernia repair History of bunionectomy H/O colonoscopy Hx of varicose vein ligation Hx of lithotripsy Bunion delivery delivered Family History Mother Breast cancer Maternal Grandmother Stomach cancer Father Chronic emphysema syndrome Hypertension Social History Household Members: Spouse and Family Housing: House Do you presently have visiting nurse or other home services: No Alcohol intake: current Alcohol intake frequency: does not drink Patient Tobacco Use Status: Former Tobacco user Tobacco use type: Cigarette Years Smoked: 12 service: No Current occupational status: employed Current occupation: Hairdresser Review of Systems Const Reports daytime sleepiness, Denies fever(s) and Reports snoring Eyes Reports no additional complaints ENT Reports dysphagia and Reports nasal congestion Card Denies chest pain Resp Reports change in phlegm color, Reports chest congestion, Reports cough, Reports snoring and Denies wheezing GI Reports dysphagia, Reports dyspepsia and Reports heartburn Musc Reports no additional complaints Skin/Breast Denies rash Parag/Lymph Denies lymphadenopathy Aller/Immun Denies wheezing Physical Exam Vital Signs: Last Vital Signs Pulse 75 02/28/24 09:41 BP 108/80 02/28/24 09:41 Pulse Ox 98 02/28/24 09:41 Oxygen Delivery Method Room Air 02/28/24 09:41 BMI result Body Mass Index 32.3 Const General: comfortable Neck Neck: Yes supple Chest Chest palpation & inspection: normal inspection of the chest Resp Effort & Inspection: normal respiratory effort Auscultation: diminished lung sounds Cardio Heart sounds: S1 normal heart sound present and S2 normal heart sound present GI Palpation (GI): Soft to palpation Skin General skin exam: no rashes or lesions noted Extrem General: Yes no clubbing, cyanosis or edema Assessment & Plan Assessment & Plan (1) Pneumonia: Comment: resolved Code(s): J18.9 - Pneumonia, unspecified organism Category: Medical Qualifiers: Laterality: bilateral Lung location: unspecified part of lung Pne umonia type: due to unspecified organism Qualified Code(s): J18.9 - Pneumonia, unspecified organism (2) Hiatal hernia: Code(s): K44.9 - Diaphragmatic hernia without obstruction or gangrene Category: Medical (3) Pulmonary nodule: Code(s): R91.1 - Solitary pulmonary nodule Category: Medical (4) Bronchiectasis: Code(s): J47.9 - Bronchiectasis, uncomplicated Category: Medical Qualifiers: Bronchiectasis type: uncomplicated Qualified Code(s): J47.9 - Bronchiectasis, uncomplicated (5) CATERINA (obstructive sleep apnea): Code(s): G47.33 - Obstructive sleep apnea (adult) (pediatric) Category: Medical Plan GILBERTO as needed reflux diet sleep elevated acapella valve requested from DME home PSG EGD scheduled F/U 3-4 months Orders: Orders RT home sleep study 02/28/24 G47.33 - Obstructive sleep apnea (adult) (pediatric) Coding Level of Care Code Est Pt Level 4 (99956) Diagnoses Pneumonia of both lungs due to infectious organism, unspecified part of lung J18.9 Laterality: bilateral Lung location: unspecified part of lung Pneumonia type: due to unspecified organism Hiatal hernia K44.9 Pulmonary nodule R91.1 Bronchiectasis without complication J47.9 Bronchiectasis type: uncomplicated CATERINA (obstructive sleep apnea) G47.33 Time Spent (min) 16
== END 2024-02-28 10:04 | disposition home or self-care (01) ==
PROVIDERS: PCP Internal Medicine; Visit Provider Hospitalist
DX: J18.9 Pneumonia, unspecified organism (principal); K44.9 Diaphragmatic hernia without obstruction or gangrene; R91.1 Solitary pulmonary nodule; J47.9 Bronchiectasis, uncomplicated; G47.33 Obstructive sleep apnea (adult) (pediatric)
CPT/HCPCS: 99214

== ENCOUNTER → 2024-04-10 08:52 | Outpatient (REF) | payer BC, SELFPAY | LOC: HO.SL 08:52 | PROVIDERS: PCP Internal Medicine; Visit Provider Hospitalist | DX: G47.33 Obstructive sleep apnea (adult) (pediatric) (principal); R40.0 Somnolence; R06.83 Snoring | CPT/HCPCS: 95806 ==

== ENCOUNTER → 2024-04-10 09:07 | Outpatient (BNV) | payer BC, SELFPAY | PROVIDERS: PCP Internal Medicine; Visit Provider Internal Medicine | DX: G47.33 Obstructive sleep apnea (adult) (pediatric) (principal) | CPT/HCPCS: 95806 ==

== ENCOUNTER 2024-04-16 06:24 | Day surgery (SDC) | payer BC, SELFPAY ==
[2024-04-12 13:38] VITALS: BMI 33.3
--- NOTE | 2024-04-15 11:33 | HO.ANESPROP2 ---
HPI - Anesthesia Eval Consult details Narrative: 63yo F for Upper Endoscopy and Colonoscopy [facility] Active Problems Active Problems: All Active Problems CATERINA (obstructive sleep apnea) (Acute) Allergies (Acute) Bronchiectasis (Acute) Bronchitis (Acute) Pulmonary nodule (Acute) Pneumonia (Acute) Colon cancer screening (Acute) Hiatal hernia (Acute) Ventral hernia (Acute) Past Medical History Medical History (Updated 02/28/24 @ 10:21 by Gerard Mcgraw MD) Bronchiectasis Bronchitis Pulmonary nodule History of postoperative nausea and vomiting DVT (deep venous thrombosis) Hiatal hernia Renal calculi Ventral hernia Family History Family History Mother Breast cancer Maternal Grandmother Stomach cancer Father Chronic emphysema syndrome Hypertension Surgical History Surgical History S/P repair of ventral hernia (05/31/22) History of ventral hernia repair History of bunionectomy H/O colonoscopy Hx of varicose vein ligation Hx of lithotripsy Bunion delivery delivered History of Problems with Anesthesia: Yes (PONV) Social History Social History Household Members: Spouse and Family Housing: House Do you presently have visiting nurse or other home services: No Alcohol intake: current Alcohol intake frequency: does not drink Patient Tobacco Use Status: Former Tobacco user Tobacco use type: Cigarette Years Smoked: 12 service: No Current occupational status: employed Current occupation: [employer] Meds Allergies Allergy/AdvReac Type Severity Reaction Status Date / Time No Known Allergies Allergy Verified 02/28/24 09:43 Home Medications ?Medication ?Instructions ?Recorded ?Confirmed ?Last Taken ?Type acetaminophen 325 mg tablet 650 mg PO Q6H PRN Pain 05/19/23 05/19/23 Unknown History albuterol sulfate 90 mcg/actuation 2 puff inhalation Q6H PRN wheezing 05/19/23 05/19/23 Unknown History aerosol inhaler ibuprofen 200 mg tablet 400 mg PO Q6H PRN Pain 05/19/23 05/19/23 Unknown History Exam Height,Weight and Vital Signs: Height 5 ft 2 in Weight 82.554 kg Narrative Narrative: EKG 02/2024 Vent. Rate : 077 BPM Atrial Rate : 077 BPM P-R Int : 126 ms QRS Dur : 072 ms QT Int : 410 ms P-R-T Axes : 048 026 035 degrees QTc Int : 463 ms Normal sinus rhythm Normal ECG No previous ECGs available Assessment and Plan Assessment Anesthesia Assessment: Chart Reviewed Final Anesthetic Review History of Problems with Anesthesia: Yes (PONV)
[2024-04-16 06:47] VITALS: BMI 31.6
[2024-04-16] MEDS: Lactated Ringers 1,000 ML 100 ML IVCONT (06:52)
[2024-04-16 06:57] VITALS: BP 119/84; PULSE 86; RESP 18; TEMP 36.9; O2SAT 96
--- NOTE | 2024-04-16 07:56 | MHC.SHP ---
Pre-Procedural Eval Section A - 24 Hr Update-Section A only Date of Service: 04/16/24 Section B - Complete if H&P > 30 days Chief Complaint: hiatal hernia, screening Details of Present Illness: DVT (deep venous thrombosis) Hiatal hernia History of postoperative nausea and vomiting Renal calculi Ventral hernia Surgical History Bunion delivery delivered H/O colonoscopy History of bunionectomy History of ventral hernia repair Hx of lithotripsy Hx of varicose vein ligation S/P repair of ventral hernia (05/31/22) Allergies: Allergies Allergy/AdvReac Type Severity Reaction Status Date / Time No Known Allergies Allergy Verified 04/16/24 06:48 Review of Systems Review of Systems Comment: Ten point ROS negative Exam Exam Comment: Gen appear: No acute distress HEENT: no icterus Chest: No overt resp distress Abd: soft, nontender, nondistended Psych: Stable affect, answering questions appropriately Neuro: A/Ox3 noted to move all extremities spontaneously Ext: no peripheral edema Plan Diagnosis/Plan: Unchanged I have reviewed the history and physical and performed a pertinent physical examination on my patient. No changes have occurred unless specified. Time Spent With Patient Time: Total time managing care of this patient today ____ minutes.
--- NOTE | 2024-04-16 08:14 | HO.ANESPROP2 ---
[facility] Active Problems Active Problems: All Active Problems CATERINA (obstructive sleep apnea) (Acute) Allergies (Acute) Bronchiectasis (Acute) Bronchitis (Acute) Pulmonary nodule (Acute) Pneumonia (Acute) Colon cancer screening (Acute) Hiatal hernia (Acute) Ventral hernia (Acute) Past Medical History Medical History Bronchiectasis Bronchitis Pulmonary nodule History of postoperative nausea and vomiting DVT (deep venous thrombosis) Hiatal hernia Renal calculi Ventral hernia Functional capacity: independent ambulation Patient : No Family History Family History Mother Breast cancer Maternal Grandmother Stomach cancer Father Chronic emphysema syndrome Hypertension Surgical History Surgical History S/P repair of ventral hernia (05/31/22) History of ventral hernia repair History of bunionectomy H/O colonoscopy Hx of varicose vein ligation Hx of lithotripsy Bunion delivery delivered History of Problems with Anesthesia: Yes (PONV) Social History Social History Household Members: Spouse and Family Household Members Other:: grandchildren Housing: House Are you a primary career technology teacher to a significant other at home: No Do you presently have visiting nurse or other home services: No Alcohol intake: current Alcohol intake frequency: does not drink Patient Tobacco Use Status: Former Tobacco user Tobacco use type: Cigarette Years Smoked: 12 Have you been hit, kicked, punched, or otherwise hurt by someone within the past year? If so, by whom?: No Are you DNR?: No Advance Directives: No Advance Directives Information Provided: Yes Recently lost weight without trying: No Nutrition Risks: No Nutritional Risk service: No Current occupational status: employed Current occupation: [employer] Allergies Allergy/AdvReac Type Severity Reaction Status Date / Time No Known Allergies Allergy Verified 04/16/24 06:48 Active Medications: Current Medications Albuterol Sulfate (Albuterol Sulfate (0.083%) 2.5 Mg/3 Ml Vial.Neb) 2.5 mg INHALE ONCE PRN PRN Reason: Shortness of Breath/Wheezing Lactated Ringer's (Lr) 1,000 mls @ 100 mls/hr IVCONT .Q10H NAUN Last Admin: 04/16/24 06:52 Dose: 100 mls/hr Home Medications ?Medication ?Instructions ?Recorded ?Confirmed ?Last Taken ?Type No Known Home Meds 04/16/24 04/16/24 Unknown History Exam Height,Weight and Vital Signs: Height 5 ft 2 in Weight 78.471 kg Last Vital Signs Temp 98.5 F 04/16/24 06:57 Pulse 86 04/16/24 06:57 Resp 18 04/16/24 06:57 BP 119/84 04/16/24 06:57 Pulse Ox 96 04/16/24 06:57 O2 Del Method Room Air 04/16/24 06:57 Airway Mallampati Class: II TM Dist: >3cm Neck ROM: Full Heart: RRR Lungs: CTA Assessment and Plan Assessment Anesthesia Assessment: Anesthesia Plan Discussed and Chart Reviewed Final Anesthetic Review History of Problems with Anesthesia: Yes (PONV) NPO: Yes ASA Class: II Final Preanesthetic Review: Meds/Allgs Chart Reviewed, Consent Obtained/Reviewed and Anes Risks/Benef Reviewed Patient Risk: Low Procedure Risk: Low Anesthetic Plan Anesthetic Plan: MAC: Disposition: Standard PACU
--- NOTE | 2024-04-16 08:33 | P.OPN-COLO_ITS ---
Colonoscopy Operative Note Operative Note Date of Service: 04/16/24 Narrative: Procedure: Upper endoscopy and colonoscopy Indication: Hiatal hernia, screening Endoscopist: Keke Rizvi MD Anesthesia Provider: Clare Shane MD Anesthesia type: MAC Instrument: [id number] and [id number] EGD Procedure:?? The procedure, indications, preparation and potential complications were reviewed with the patient, who indicated understanding and gave written informed consent to proceed. The endoscope was introduced through the mouth, and advanced to the 2nd part of the duodenum. The mucosa was carefully examined on slow withdrawal of the endoscope. The patient tolerated the procedure well. There were no immediate complications.? EGD Findings:? * Esophagus:? Normal esophageal mucosa was noted. The Z-line was at 29 cm displaced upwards by a large hiatal hernia with the diaphragmatic pinch at 35 cm. Cold forceps biopsies were taken from middle and lower esophagus to rule out eosinophilic esophagitis. * Stomach:? Erythema and erosions were noted in the herniated stomach consistent with Juan erosions. Mild patchy erythema was also noted in the antrum. Retroflexion was performed in the cardia that showed Hill grade 4 hiatal hernia. Random cold forceps biopsies were taken from the stomach to rule out H pylori. * Duodenum:? Erythema was noted in the duodenal bulb. Cold forceps biopsies were taken from the duodenal bulb and 2nd portion of the duodenum to rule out celiac sprue. Colonoscopy Procedure:? The patient was then turned for the colonoscopy. A digital rectal exam was performed which was abnormal for hemorrhoids.? A distal attachment cap was affixed to the tip of the scope and the colonoscope was then inserted through the anus and advanced through the colon and advanced to the cecum at 75 cm and terminal ileum.? Appendiceal orifice and ileocecal valve were identified. Mucosa was carefully examined under high definition white light as the instrument was slowly withdrawn in a retrograde panoramic fashion. Retroflexion was performed in ascending colon and rectum. The procedure was not difficult. The quality of the prep was BBPS: 2+3+3 = adequate Withdrawal time 10 minutes Limitations: No limitations Findings: Mucosa: Normal colon and terminal ileum mucosa. Protruding lesions: * Large internal hemorrhoids without stigmata of recent bleeding. Excavated lesions: * Ayld-wi-[id number] diverticulosis of left side of the colon. Impression: 1. Normal esophagus (biopsy) 2. Large hiatal hernia 3. Juan erosions 4. Gastritis (biopsy) 5. Bulbar duodenitis (biopsy) 6. Normal colon and terminal ileum mucosa 7. Diverticulosis 8. Internal and external hemorrhoids Recommendations:?? * Follow-up path results * Avoid NSAIDs * Start omeprazole 20 mg once daily * H Pylori treatment if biopsies + * Will review referral to thoracic surgery in office * Repeat colonoscopy for CRC screening in 10 years.
[2024-04-16 08:36] VITALS: BP 85/52; PULSE 83; RESP 16; TEMP 36.2; O2SAT 93
[2024-04-16 08:51] VITALS: BP 110/79; PULSE 90; RESP 16; TEMP 36.2; O2SAT 97
--- NOTE | 2024-04-16 08:56 | HO.POSTANES ---
Post Anesthesia Evaluation Post Anesthesia Evaluation Date of Service: 04/16/24 Vital Signs: Vital Signs Temp Pulse Resp BP Pulse Ox O2 Del Method 04/16/24 08:51 97.2 F 90 16 110/79 97 Room Air 04/16/24 08:36 97.2 F 83 16 85/52 L 93 Room Air 04/16/24 06:57 98.5 F 86 18 119/84 96 Room Air Anesthesia: Monitored Mental Status: Awake Pain Control: Satisfactory Nausea/Vomiting: None Hydration: Adequate Anesthesia-Related Issues: No Anes. Related Issues
== END 2024-04-16 09:24 | disposition home or self-care (01) ==
PROVIDERS: PCP Internal Medicine; Visit Provider Internal Medicine
PROC: (CPT 43239; principal; 2024-04-16 07:30)
DX: Z12.11 Encounter for screening for malignant neoplasm of colon (principal); K57.30 Diverticulosis of large intestine without perforation or abscess without bleeding; K64.8 Other hemorrhoids; K29.70 Gastritis, unspecified, without bleeding; K29.80 Duodenitis without bleeding; K25.9 Gastric ulcer, unspecified as acute or chronic, without hemorrhage or perforation; K44.9 Diaphragmatic hernia without obstruction or gangrene; G47.33 Obstructive sleep apnea (adult) (pediatric); Z86.718 Personal history of other venous thrombosis and embolism; Z87.891 Personal history of nicotine dependence
CPT/HCPCS: 43239; 45378; 88305; 88313; 88342; J2003; J2704

== ENCOUNTER → 2024-04-16 06:24 | Outpatient (BNV) | payer BC, SELFPAY | PROVIDERS: PCP Internal Medicine; Visit Provider Internal Medicine | DX: Z12.11 Encounter for screening for malignant neoplasm of colon (principal); K57.30 Diverticulosis of large intestine without perforation or abscess without bleeding; K64.8 Other hemorrhoids; K25.9 Gastric ulcer, unspecified as acute or chronic, without hemorrhage or perforation; K29.70 Gastritis, unspecified, without bleeding; K29.80 Duodenitis without bleeding; K44.9 Diaphragmatic hernia without obstruction or gangrene | CPT/HCPCS: 43239; 45378 ==

== ENCOUNTER 2024-07-29 14:27 | Outpatient (AMB) | payer BC, SELFPAY ==
--- NOTE | 2024-07-29 14:27 | MHC.OFFVIS ---
Intake Visit Reasons: post op procedures Intake Note: Katina presents as a telehealth. CC: She states she is not having concerns other than the hiatal hernia. She wants to discuss about the suggestion of being referred and so she has a few questions about the hiatal hernia. She states it does not bother her unless she watches what she eats. Money Laundering Investigator Required: No Allergies No Known Allergies Allergy (Verified 04/16/24 06:48) HPI Comments Details: 62y.o F with PMH of recent ventral hernia repair who is here for hiatal hernia evaluation. Pt reports her only main complaints are intermittent heartburn triggered by certain foods. Also experiences food getting stuck or move slowly when she has the heartburn. Takes OTC remedy for this but mostly just avoid trigger foods. Otherwise she does not report any abd pain, chest pain, N,V, regurgitation, change in appetite, or weight loss. She had imaging done for ventral hernia evaluation which then also detected a hiatal hernia for which she was referred. She also reports having a barium swallow done through her PCP but we do not have the records. Mat grandmother: stomach ca Former smoker. Rare etOH use. She has never had an upper endoscopy. Last colo was almost 10 years ago. No polyps at that time. 04/16/24 1. Normal esophagus (biopsy) 2. Large hiatal hernia 3. Juan erosions 4. Gastritis (biopsy) 5. Bulbar duodenitis (biopsy) 6. Normal colon and terminal ileum mucosa 7. Diverticulosis 8. Internal and external hemorrhoids Path: A. Duodenum, biopsy: Chronic inactive duodenitis. B. Stomach, random, biopsy: Antral-type and oxyntic mucosa with mild chronic inactive inflammation; no Helicobacter organisms seen. C. Esophagus, lower, biopsy: Squamous epithelium within normal limits; no inflammation seen. D. Esophagus, middle, biopsy: Squamous epithelium within normal limits; no inflammation seen 07/29/24: Booked for tele visit. EGD and colonoscopy results reviewed. Patient interested in pursuing surgical referral for paraesophageal hernia. Reports that since she was not having any pyrosis or regurgitation symptoms she never started the PPI. This was clarified that was prescribed for gastritis and duodenitis noted during the endoscopy. In terms of colon, no polyps were noted, and repeat colonoscopy will be due in 2034. [facility] Medical History Bronchiectasis Bronchitis Pulmonary nodule History of postoperative nausea and vomiting DVT (deep venous thrombosis) Hiatal hernia Renal calculi Ventral hernia Surgical History (Updated 07/29/24 @ 14:28 by ROBERT Almeida) History of esophagogastroduodenoscopy (EGD) S/P repair of ventral hernia (05/31/22) History of ventral hernia repair History of bunionectomy H/O colonoscopy Hx of varicose vein ligation Hx of lithotripsy Bunion delivery delivered Family History Mother Breast cancer Maternal Grandmother Stomach cancer Father Chronic emphysema syndrome Hypertension Social History Household Members: Spouse and Family Household Members Other:: grandchildren Housing: House Are you a primary long term care phlebotomist to a significant other at home: No Do you presently have visiting nurse or other home services: No Alcohol intake: current Alcohol intake frequency: does not drink Patient Tobacco Use Status: Former Tobacco user Tobacco use type: Cigarette Years Smoked: 12 service: No Current occupational status: employed Current occupation: Hairdresser Review of Systems Const All systems reviewed & are unremarkable except as noted in HPI and below Physical Exam Vital Signs: Phone visit Telehealth Telehealth Telehealth Platform: Telephone Location of provider rendering services: practice address Location of patient: address on file Patient Identification confirmed using: Name, : Yes Telehealth method: voice only Patient verbally consented to treatment: Yes Patient verbally consented to billing insurance company: Yes Patient informed of any privacy concerns related to visit: Yes Minutes spent on Phone/Video with Pt.: 6 Assessment & Plan Assessment & Plan (1) Hiatal hernia: Code(s): K44.9 - Diaphragmatic hernia without obstruction or gangrene Category: Medical (2) Gastritis and duodenitis: Code(s): K29.90 - Gastroduodenitis, unspecified, without bleeding Category: Medical Plan Reviewed with the patient that due to history of bronchiolitis and multifocal pneumonia thought to be secondary to aspiration events, would recommend surgical evaluation for hiatal hernia repair. A referral has been requested today. She was also again reminded to start PPI therapy not just for reflux but also for gastritis and duodenitis. She is apprehensive about taking the omeprazole terminal make up operator and was educated that may not need to be continued post hiatal hernia repair should she elect to proceed with it. Repeat colonoscopy for colorectal cancer screening due in 2034. Follow-up in the office as needed Orders: Referrals Bariatric Surgery Referral K44.9 - Diaphragmatic hernia without obstruction or gangrene Coding Level of Care Code Tele Est Pt Level 3 (15259) Diagnoses Hiatal hernia K44.9 Gastritis and duodenitis K29.90
--- OUTSIDE RECORDS SUMMARY | 2024-07-29 17:17 | XMS_ITS ---
Author Name [facility] Organization Unknown Care Team Organization Name Specialty Phone Email Start Date End Da te [facility] the [facility] Policy [facility]st [facility] 02/16/2024
== END 2024-07-29 16:32 | disposition home or self-care (01) ==
LOC: HO.HGI 14:27
PROVIDERS: PCP Internal Medicine; Visit Provider Internal Medicine
DX: K44.9 Diaphragmatic hernia without obstruction or gangrene (principal); K29.90 Gastroduodenitis, unspecified, without bleeding
CPT/HCPCS: 99213

== ENCOUNTER → 2024-07-29 14:27 | Outpatient (BNVA) | payer BC, SELFPAY | PROVIDERS: PCP Internal Medicine; Visit Provider Internal Medicine ==

== ENCOUNTER 2024-08-21 08:51 | Outpatient (AMB) | payer BC, SELFPAY ==
--- NOTE | 2024-08-21 08:55 | MHC.OFFVISWM ---
VS Expanded 08/21/24 09:03 BP 121/75 Blood Pressure Location Rt brachial Blood Pressure Position Sitting Pulse 79 Pulse Source Pulse Oximeter Temp 95.8 F L Temperature Source Temporal Artery Scan Pulse Oximetry 98 Oxygen Delivery Method Room Air Height 5 ft 2 in Weight 170 lb 12.8 oz BMI 31.2 Body Fat % 41.6 Body Fat Mass 71.0 Fat Free Mass 99.6 Visceral Fat Rating 11.0 Body Water % 41.2 Body Water Mass 70.4 Muscle Mass/Score 94.6 Basal Metabolic Rate/Score 1,379 Intake Visit Reasons: OV Diaphragmatic Hernia - Dr. Rizvi Ref. Allergies Latex, Natural Rubber Allergy (Mild, Verified 08/21/24 09:01) Hives Seasonal Allergies Allergy (Mild, Verified 08/21/24 09:01) Itchy Eyes PFSH Medical History (Updated 08/21/24 @ 14:20 by Kunal Cuevas MD) Bronchiectasis Bronchitis Pulmonary nodule History of postoperative nausea and vomiting DVT (deep venous thrombosis) Hiatal hernia Renal calculi Ventral hernia Surgical History History of esophagogastroduodenoscopy (EGD) S/P repair of ventral hernia (05/31/22) History of ventral hernia repair History of bunionectomy H/O colonoscopy Hx of varicose vein ligation Hx of lithotripsy Bunion delivery delivered Family History Mother Breast cancer Maternal Grandmother Stomach cancer Father Chronic emphysema syndrome Hypertension Social History (Updated 08/21/24 @ 09:02 by Naty Wasserman CMA) Household Members: Spouse and Family Household Members Other:: grandchildren Housing: House Are you a primary career and technology education teacher to a significant other at home: No Do you presently have visiting nurse or other home services: No Alcohol intake: current Alcohol intake frequency: holidays/special occasions only Patient Tobacco Use Status: Former Tobacco user Tobacco use type: Cigarette Years Smoked: 12 service: No Current occupational status: employed Current occupation: Hairdresser Physical Exam Vital Signs: Last Vital Signs Temp 95.8 F L 08/21/24 09:03 Pulse 79 08/21/24 09:03 BP 121/75 08/21/24 09:03 Pulse Ox 98 08/21/24 09:03 Oxygen Delivery Method Room Air 08/21/24 09:03 BMI result Body Mass Index 31.2 GI Inspection: Yes normal to inspection (Gynecoid body habitus), Yes incision (well healed) and Yes obesity Palpation (GI): Soft to palpation Extrem Right lower extremity: normal to inspection Left lower extremity: normal to inspection Assessment & Plan Assessment & Plan (1) 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 We discussed the potential etiology of the hernia that could be of traumatic etiology or due to the twin , worsened by her weight. We discussed the details of the diaphragmatic hernia repair and the potential technical challenges such as being able to achieve enough mobilization of the esophagus back in the abdomen and being able to close the diaphragmatic muscle (crura) primarily with sutures. We also discussed the possibility of using a biologic mesh to close the hernia defect if the crura cannot be adequately re-approximated primarily with sutures. We also discussed the option of doing a gastropexy or a fundoplication to prevent postoperative reflux and prevent hernia recurrence. As we discussed, I favor the gastropexy as the fundoplication can cause several distrurbing symptoms such as gas-bloating, flatulence, inability to burp which can be bothersome to patients especially for him with a history of IBS. Also we discussed the complexity of a potential hernia recurrence in association with a hernia recurrence. He was in agreement not to have a fundoplication. We also discussed that after surgery, he will need to be on a liquid diet with protein shakes the first week. The second week will add protein bars and soft foods and after the third week we will introduce small amounts of regular food. The transition to normal eating habits will take about 6 weeks which is the time required for the repair to heal completely. The patient is in agreement to proceed and the surgery is scheduled for 11/05/2024. 2. She will buy a body composition scale and we implement our lifestyle program to help her lose weight preoperatively.
[2024-08-21 09:03] VITALS: BP 121/75; PULSE 79; TEMP 35.4; O2SAT 98; BMI 31.2
== END 2024-08-21 14:23 | disposition home or self-care (01) ==
LOC: HO.HBS 08:52
PROVIDERS: PCP Internal Medicine; Visit Provider Surgery
DX: K44.0 Diaphragmatic hernia with obstruction, without gangrene (principal)
CPT/HCPCS: 99204

== ENCOUNTER 2024-10-22 08:23 | Outpatient (AMB) | payer BC, SELFPAY ==
--- NOTE | 2024-10-22 08:25 | MHC.OFFVIS ---
Vital Signs 10/22/24 08:26 Height 5 ft 2 in Weight 176 lb 5.917 oz BMI 32.3 BP 96/68 Blood Pressure Location Lt brachial Pulse 81 Pulse Source Pulse Oximeter Pulse Oximetry (%) 97 Oxygen Delivery Method Room Air Intake Visit Reasons: Lung Cavity Lesion Departmental Secretary Required: No Accompanied by: Self / Same As Patient Allergies Latex, Natural Rubber Allergy (Mild, Verified 10/22/24 08:29) Hives Seasonal Allergies Allergy (Mild, Verified 10/22/24 08:29) Itchy Eyes HPI Comments Details: The patient is a 64 year woman with a known history of a large hiatal hernia with ongoing symptoms. She started developing worsening respiratory symptoms and cough. She was evaluated by primary care doctor was given a order for chest x-ray. Patient had that x-ray back in May. I did personally reviewed the initial chest x-ray demonstrating the large hiatal hernia and also a opacity in the left infrahilar area suggesting of a cavitary lesion. She was placed on antibiotics however her symptoms worsen and a week later she went to the [facility] ED for further evaluation. Her x-ray also personally by me demonstrating interval worsening of airspace disease on the left hemithorax. She then underwent a CT scan of the chest which I also personally reviewed demonstrating significant bronchiolitis and bronchopneumonia involving the left upper lobe, left lower lobe and also right lower lobe. Again the hiatal hernia present. Had significant bronchiolitis bringing the possibility of either staph infection or aspiration related. Specially with her hiatal hernia. The patient then did follow-up with her primary care doctor in a repeat CT scan was ordered which I also personally reviewed demonstrating interval improvement of the airspace disease although still with evidence of bronchiolitis and some interstitial disease although significantly improved. Does have some evidence of bronchiectasis which could be chronic due to chronic micro aspirations. In addition to that, the patient did have a left lower lobe pulmonary nodule measuring around 7 mm in size. appears to be well-circumscribed may have some calcium. It was not mentioned in the report and I do believe it is important to follow this nodule. And should not be evaluated or assess based on the significant airspace disease that she had initially with the 1st CT scan [place]. The patient still complains of chest congestion cough productive phlegm yellowish in color. Moderate severity. Will go ahead and try to get a sputum culture then afterwards she can start doxycycline. Will plan to repeat a CT scan around 3-4 months for her lost 1 to make sure that there is resolution of the airspace disease and also to follow-up with the intermediate size pulmonary nodule in the left lower lobe. The patient also of note is complaining of difficulty swallowing feels like food is getting stuck . She was supposed to have an endoscopy at some point but she was not able to make the appointment since she was not [place] the time that she was call. In addition to the we talked about the importance of reflux diet. 12/26/2023 the patient is here for a pulmonary follow-up visit. Overall he she is doing a lot better. No evidence of any recurrent pneumonia although she does have chronic bronchitis. She did have a repeat CT scan of the chest demonstrating some interval resolution of the airspace disease although she still has some bronchiectatic changes. In addition to that she has a large hiatal hernia. She did have also an abnormal barium swallow. She is scheduled to see GI and undergoing endoscopy in the coming months. She should be evaluated for Rausch's. Also there is a question of tightening or stenosis of the esophagus at the level of the GE junction. In the meantime with a chronic bronchitis be reasonable to treat her with the macrolide therapy as a promotility agent to help her with her GI secretions and also hopefully treat her for the chronic bronchitis that she is still having some chest congestion. The patient does have history of allergies. She is wondering if her cough could be related to also to allergies. The patient is able to come back and get blood work at some point. In addition to that we can also address any questions of immunocompromised state that may be resulting in chronic bronchitis. She will continue the azithromycin 3 times a week for least couple months. She will come in for an EKG to make sure that QT interval was within normal limits while on the medication. And she will follow-up in 2-3 months to see her progress. 02/28/2024 the patient is here for a pulmonary follow-up visit. Overall she is doing well from a respiratory status. She continues to follow closely the reflux diet. She is trying sleep elevated with a wedge. The patient did try the azithromycin promotility agent for month. It did help her and she stopped it afterwards. She does have some congestion usually in the morning. She coughs up some phlegm usually in the morning which is usually clear to beige in color. She will need an Acapella valve to help with mucus clearance and chest physical therapy. I will send went to the local [email or web address] company. In addition to that the patient is scheduled to undergo an endoscopy in the coming months. We did review her blood work. She does have allergies very mild to mold in addition to that does have significant allergies to ragweed typically in the end of the summer. The patient also complains of some daytime drowsiness. Her [place] score is elevated 02/24. Likely due to the change in sleeping position. Will go ahead and request a home sleep study for her at this time. 10/22/2024 the patient is here for pulmonary follow-up visit. Overall she is doing well from a respiratory status. She continues to follow closely the reflux diet. She is also sleeping elevated. The cavitary pneumonia that she had before [place] clear completely. She is now working with surgery to see about getting fundoplication. She is still not sure where she is going to get it. For now though she is doing well as she continues to follow the reflux recommendations. We did review the pictures and she understands that she does have a [id number] hiatal hernia. In addition to that the patient has started CPAP therapy. The patient does have moderate degree of sleep apnea. With significant hypoxia and also significant tachycardia due to the stress of the sleep apnea while she is not using PAP therapy. She struggles with CPAP per therapy. She has a hard time tolerating the high pressures and she takes it off. She was set up 6-14 and we decrease the pressures 4-10. She is going to try that and if she does not tolerate that she can always call and I can adjusted for the pressures further. She will bring the machine to the next visit. Will follow-up in 6 months to make sure that she is properly tolerating the therapy. If she has any issues or concerns she can always call for further recommendations. [facility] Medical History (Updated 08/21/24 @ 14:20 by Kunal Cuevas MD) Bronchiectasis Bronchitis Pulmonary nodule History of postoperative nausea and vomiting DVT (deep venous thrombosis) Hiatal hernia Renal calculi Ventral hernia Surgical History History of esophagogastroduodenoscopy (EGD) S/P repair of ventral hernia (05/31/22) History of ventral hernia repair History of bunionectomy H/O colonoscopy Hx of varicose vein ligation Hx of lithotripsy Bunion delivery delivered Family History Mother Breast cancer Maternal Grandmother Stomach cancer Father Chronic emphysema syndrome Hypertension Social History (Updated 08/21/24 @ 09:02 by Naty Wasserman CMA) Household Members: Spouse and Family Household Members Other:: grandchildren Housing: House Are you a primary medical care manager to a significant other at home: No Do you presently have visiting nurse or other home services: No Alcohol intake: current Alcohol intake frequency: holidays/special occasions only Patient Tobacco Use Status: Former Tobacco user Tobacco use type: Cigarette Years Smoked: 12 service: No Current occupational status: employed Current occupation: Hairdresser Review of Systems Const Reports daytime sleepiness, Denies fever(s) and Reports snoring Eyes Reports no additional complaints ENT Reports dysphagia and Reports nasal congestion Card Denies chest pain Resp Denies change in phlegm color, Reports cough, Reports snoring and Denies wheezing GI Reports dysphagia, Reports dyspepsia and Reports heartburn Musc Reports no additional complaints Skin/Breast Denies rash Parag/Lymph Denies lymphadenopathy Aller/Immun Denies wheezing Physical Exam Vital Signs: BMI result Body Mass Index 32.3 Const General: comfortable Neck Neck: Yes supple Chest Chest palpation & inspection: normal inspection of the chest Resp Effort & Inspection: normal respiratory effort Auscultation: clear to auscultation bilaterally Cardio Heart sounds: S1 normal heart sound present and S2 normal heart sound present GI Palpation (GI): Soft to palpation Skin General skin exam: no rashes or lesions noted Extrem General: Yes no clubbing, cyanosis or edema Assessment & Plan Assessment & Plan (1) Pneumonia: Comment: resolved Code(s): J18.9 - Pneumonia, unspecified organism Category: Medical Qualifiers: Laterality: bilateral Lung location: unspecified part of lung Pneumonia type: due to unspecified organism Qualified Code(s): J18.9 - Pneumonia, unspecified organism (2) Hiatal hernia: Code(s): K44.9 - Diaphragmatic hernia without obstruction or gangrene Category: Medical (3) Pulmonary nodule: Code(s): R91.1 - Solitary pulmonary nodule Category: Medical (4) Bronchiectasis: Code(s): J47.9 - Bronchiectasis, uncomplicated Category: Medical Qualifiers: Bronchiectasis type: uncomplicated Qualified Code(s): J47.9 - Bronchiectasis, uncomplicated (5) CATERINA (obstructive sleep apnea): Code(s): G47.33 - Obstructive sleep apnea (adult) (pediatric) Category: Medical Plan GILBERTO as needed reflux diet sleep elevated acapella valve requested from DME continue APAP adjusted 6-14 to 4-10 F/U 6 months Coding Level of Care Code Est Pt Level 4 (09162) Diagnoses Pneumonia of both lungs due to infectious organism, unspecified part of lung J18.9 Laterality: bilateral Lung location: unspecified part of lung Pneumonia type: due to unspecified organism Hiatal hernia K44.9 Pulmonary nodule R91.1 Bronchiectasis without complication J47.9 Bronchiectasis type: uncomplicated CATERINA (obstructive sleep apnea) G47.33 Time Spent (min) 17
[2024-10-22 08:26] VITALS: BP 96/68; PULSE 81; O2SAT 97; BMI 32.3
== END 2024-10-22 08:49 | disposition home or self-care (01) ==
LOC: HO.HPS 08:24
PROVIDERS: PCP Internal Medicine; Visit Provider Hospitalist
DX: J18.9 Pneumonia, unspecified organism (principal); K44.9 Diaphragmatic hernia without obstruction or gangrene; R91.1 Solitary pulmonary nodule; J47.9 Bronchiectasis, uncomplicated; G47.33 Obstructive sleep apnea (adult) (pediatric)
CPT/HCPCS: 99214

== ENCOUNTER → 2025-02-25 08:00 | Outpatient (BNV) | payer BC, SELFPAY | PROVIDERS: PCP Internal Medicine; Visit Provider Psychiatry & Neurology Neurology | DX: G47.33 Obstructive sleep apnea (adult) (pediatric) (principal) | CPT/HCPCS: 95806 ==

== ENCOUNTER → 2025-02-25 08:03 | Outpatient (REF) | payer BC, SELFPAY ==
--- OUTSIDE RECORDS SUMMARY | 2025-02-25 08:19 | XMS_ITS ---
Author Name [facility] Organization Unknown Care Team Organization Name Specialty Phone Email Start Date End [facility] [employer] 02/16/2024
== END ==
LOC: HO.SL 08:03
PROVIDERS: PCP Internal Medicine; Visit Provider Hospitalist
DX: G47.33 Obstructive sleep apnea (adult) (pediatric) (principal)
CPT/HCPCS: 95806